=== PATIENT | female | born 1995 | race Caucasian/White ===

== ENCOUNTER 2016-04-10 12:53 | Emergency (ER) | payer SELFPAY ==
[~2016-04-10] VITALS: Ht 157.5 cm; Wt 55.0 kg
[~2016-04-10 12:53] MED LIST: ZOFR4TAB3 SL
[2016-04-10 12:59] VITALS: BP 106/77; PULSE 102; RESP 16; TEMP 97.7; O2SAT 100
--- NOTE | 2016-04-10 13:29 | PD ---
HPI Chief Complaint: Abdominal Pain Time Seen by Provider: 13:12 Travel History International Travel<30 days: No Contact w/Intl Traveler<30days: No Traveled to known affect area: No History of Present Illness HPI The patient was seen and examined in the presence of the nurse. This patient complains of right flank pain. Duration is 3 days. Severity is moderate. No injury. No vomiting or diarrhea or fever or urinary or vaginal complaints. Eating factors. PFSH Past Medical History Asthma: Yes Diminished Hearing: No Hepatitis: Yes (C) Respiratory: Yes (ASTHMA) ?: Not LMP: 3 weeks ago : 4 Para: 2 : 2 Past Surgical History Other Surgery: No Social History Alcohol Use: Yes Tobacco Use: Yes (/ PPD) Substance Use: Yes (THC) Allergies-Medications (Allergen,Severity, Reaction): Coded Allergies: No Known Allergies (Verified , 04/10/16) Reported Meds & Prescriptions Reported Meds & Active Scripts Active No Active Prescriptions or Reported Medications Review of Systems General / Constitutional: No: Fever Eyes: No: Visual changes HENT: No: Headaches Cardiovascular: No: Chest Pain or Discomfort Respiratory: No: Shortness of Breath Gastrointestinal: No: Abdominal Pain Genitourinary: Positive: Flank Pain, No: Dysuria Musculoskeletal: No: Pain Skin: No Rash Neurologic: No: Weakness Psychiatric: No: Depression Endocrine: No: Polydipsia Hematologic/Lymphatic: No: Easy Bruising Physical Exam Narrative GENERAL: Well-nourished, well-developed patient with right flank pain. SKIN: Warm and dry. HEAD: Atraumatic. Normocephalic. EYES: Pupils equal and round. No scleral icterus. No injection or drainage. ENT: No nasal bleeding or discharge. Mucous membranes pink and moist. NECK: Trachea midline. No JVD. CARDIOVASCULAR: Regular rate and rhythm. No murmur appreciated. RESPIRATORY: No accessory muscle use. Clear to auscultation. Breath sounds equal bilaterally. GASTROINTESTINAL: Abdomen soft, non-tender, nondistended. Hepatic and splenic margins not palpable. MUSCULOSKELETAL: No obvious deformities. No clubbing. No cyanosis. No edema. Right CVA area is tender NEUROLOGICAL: Awake and alert. No obvious cranial nerve deficits. Motor grossly within normal limits. Normal speech. PSYCHIATRIC: Appropriate mood and affect; insight and judgment normal. Data Data Last Documented VS Vital Signs Date Time Temp Pulse Resp B/P Pulse Ox O2 Delivery O2 Flow Rate FiO2 04/10/16 12:59 97.7 102 16 106/77 100 Orders Iv Access Insert/Monitor (04/10/16 13:23) Urinalysis - C+S If Indicated (04/10/16 13:23) Ed Urine Pregnancytest Poc (04/10/16 13:23) Complete Blood Count With Diff (04/10/16 13:23) Basic Metabolic Panel (Bmp) (04/10/16 13:23) Beta Hcg (Quant/Titer) (04/10/16 13:23) Urine Culture (04/10/16 13:31) Labs Laboratory Tests Test 04/10/16 13:31 White Blood Count 11.3 TH/MM3 Red Blood Count 4.46 MIL/MM3 Hemoglobin 13.7 GM/DL Hematocrit 40.1 % Mean Corpuscular Volume 90.1 FL Mean Corpuscular Hemoglobin 30.8 PG Mean Corpuscular Hemoglobin 34.2 % Concent Red Cell Distribution Width 12.6 % Platelet Count 170 TH/MM3 Mean Platelet Volume 8.4 FL Neutrophils (%) (Auto) 75.8 % Lymphocytes (%) (Auto) 9.8 % Monocytes (%) (Auto) 13.5 % Eosinophils (%) (Auto) 0.2 % Basophils (%) (Auto) 0.7 % Neutrophils # (Auto) 8.6 TH/MM3 Lymphocytes # (Auto) 1.1 TH/MM3 Monocytes # (Auto) 1.5 TH/MM3 Eosinophils # (Auto) 0.0 TH/MM3 Basophils # (Auto) 0.1 TH/MM3 CBC Comment DIFF FINAL Differential Comment Urine Collection Type CLEAN CATCH Urine Color YELLOW Urine Turbidity CLOUDY Urine pH 6.5 Urine Specific [place] 1.010 Urine Protein 100 mg/dL Urine Glucose (UA) NEG mg/dL Urine Ketones NEG mg/dL Urine Occult Blood SMALL Urine Nitrite NEG Urine Bilirubin NEG Urine Leukocyte Esterase LARGE Urine RBC 0-3 /hpf Urine WBC 25-49 /hpf Urine Squamous Epithelial > 8 /hpf Cells Urine Bacteria MOD /hpf Microscopic Urinalysis Comment CULTURE INDICATED Sodium Level 135 MEQ/L Potassium Level 3.6 MEQ/L Chloride Level 100 MEQ/L Carbon Dioxide Level 25.6 MEQ/L Anion Gap 9 MEQ/L Blood Urea Nitrogen 4 MG/DL Creatinine 0.57 MG/DL Estimat Glomerular Filtration 131 ML/MIN Rate Random Glucose 95 MG/DL Calcium Level 8.6 MG/DL Human Chorionic Gonadotropin, [address] MIU/ML Quant MDM Medical Decision Making Medical Screen Exam Complete: Yes Emergency Medical Condition: Yes Medical Record Reviewed: Yes Differential Diagnosis Pyelonephritis, ectopic , sciatica Narrative Course I have reviewed the patient's electronic medical record. Patient was here many times in 2013 for minor complaints but visits have tapered off after that IV placed CBC is normal Metabolic profile is normal Urine is positive Beta hCG is 22,000 I did a bedside transabdominal ultrasound. I see a distinct ringlike structure in the center of the uterine cavity suggesting early fetus. 2 early for distinct heartbeat. An intra-uterine fetus rules out ectopic. She has a soft benign nontender abdomen and no abdominal or pelvic pain Urinalysis shows pyuria and will be cultured I gave her one week of Macrobid Has been using a lot of drugs lately and is counseled against this Needs to get some care Take a daily vitamin and use Tylenol as needed Diagnosis Primary Impression: Acute right flank pain Additional Impression: Qualified Code: Z33.1 - , unspecified gestational age Additional Instructions: Follow-up with [facility] for care assessment Take a vitamin daily Take antibiotics as prescribed Med/Other Pt SpecificInfo: Prescription(s) given Scripts Nitrofurantoin Monohydrate Macrocrystals (Macrobid)100 Mg [id number] Mg PO BID #14 CAP Ref 0 Prov:Obi Dent MD 04/10/16 Disposition: 01 DISCHARGE HOME Condition: Stable Obi Dent MD Apr 10, 2016 13:28
[2016-04-10 13:43] LABS: AUTOMATED NEUTROPHIL # 8.6 TH/MM3 (1.8-7.7); BASOPHIL # 0.1 TH/MM3 (0-0.2); BASOPHIL % 0.7 % (0.0-2.0); BLOOD, URINE SMALL (NEG); EOSINOPHIL % 0.2 % (0.0-4.0); GLUCOSE,URINE NEG (NEG); HEMATOCRIT 40.1 % (35.0-46.0); HEMO FLAGS DIFF FINAL; KETONE, URINE NEG (NEG); LYMPH % 9.8 % (9.0-44.0); LYMPHOCYTE # 1.1 TH/MM3 (1.0-4.8); MEAN CELL VOLUME 90.1 FL (80.0-100.0); MEAN CORPUSCULAR HEMOGLOBIN 30.8 PG (27.0-34.0); MEAN CORPUSCULAR HGB CONC 34.2 % (32.0-36.0); MONO % 13.5 % (0.0-8.0); NEUT % 75.8 % (16.0-70.0); NITRITE,URINE NEG (NEG); PH, URINE 6.5 (5.0-8.5); PLATELET COUNT 170 TH/MM3 (150-450); RED BLOOD COUNT 4.46 MIL/MM3 (4.00-5.30); RED CELL DISTRIBUTION WIDTH 12.6 % (11.6-17.2); WHITE BLOOD COUNT 11.3 TH/MM3 (4.0-11.0)
[2016-04-10 13:51] LABS: METHOD OF COLLECTION CLEAN CATCH; URINE COLOR YELLOW (YELLW/STRAW)
[2016-04-10 13:52] LABS: BACTERIA, URINE MOD /hpf; COMMENT (UR) CULTURE INDICATED; CULTURE IF INDICATED CULTURE INDICATED; POTASSIUM 3.6 MEQ/L (3.5-5.1); RBC, URINE 0-3 /hpf (0-3); SQUAMOUS EPITHELIAL CELL URINE > 8 /hpf (0-5)
[2016-04-10 13:55] LABS: BICARBONATE 25.6 MEQ/L (21.0-32.0)
[2016-04-10] MEDS ORDERED: MACR100C2 PO (15:46)
== END 2016-04-10 16:02 | disposition home or self-care (01) ==
LOC: PHED 12:53
DX: O23.40 Unspecified infection of urinary tract in pregnancy, unspecified trimester (principal); B96.20 Unspecified Escherichia coli [E. coli] as the cause of diseases classified elsewhere; B96.89 Other specified bacterial agents as the cause of diseases classified elsewhere; Z3A.00 Weeks of gestation of pregnancy not specified
CPT/HCPCS: 80048; 81001; 84702; 84703; 85025; 87077; 87086; 87186; 99284

== ENCOUNTER 2016-04-11 08:48 | Emergency (ER) | payer SELFPAY ==
[~2016-04-11] VITALS: Ht 154.9 cm; Wt 56.0 kg
[~2016-04-11 08:48] MED LIST changes: +MACR100C2 PO; -ZOFR4TAB3 SL
[2016-04-11 08:53] VITALS: BP 109/77; PULSE 101; RESP 16; TEMP 98.7; O2SAT 99
[2016-04-11] MEDS ORDERED: SODIUM CHLOR 0.9% 1000 ML INJ 1,000 ML IV ONE (09:09)
[2016-04-11] MEDS ORDERED: ONDANSETRON HCL 4 MG/2 ML VIAL IVP ONE (09:15)
[2016-04-11] MEDS ORDERED: MORPHINE SULFATE 4 MG/ML INJ IV PUSH ONE (09:15)
[2016-04-11] MEDS ORDERED: cefTRIAXone INJ 1,000 MG in SODIUM CHLORIDE 0.9% INJ 100 ML IV ONE (09:15)
--- NOTE | 2016-04-11 09:15 | PD ---
HPI Chief Complaint: Complaint Time Seen by Provider: 09:02 Travel History International Travel<30 days: No Contact w/Intl Traveler<30days: No Traveled to known affect area: No History of Present Illness HPI The patient is a 21-year-old female who presents to the emergency department for right flank pain. The patient was evaluated in the emergency department yesterday where she had a positive beta hCG greater than 20,000. The patient is Ab2, gave one child up for adoption. The patient states her last menstrual cycle was approximately 3.5 weeks ago. According to the EMR the patient had a bedside ultrasound revealed what appeared to be a ringlike structure in the uterus consistent with an IUP. The patient was diagnosed with pyelonephritis and discharged home on Macrobid. The patient states she has taken 3 doses Macrobid, but continues to have severe right sided flank pain. She does complain of mild nausea without any vomiting. The pain is located in the right flank, nonradiating, worse with inspiration and palpation over the affected area. The patient denies any vaginal discharge or bleeding. Symptoms are moderate, there are no current alleviating or exacerbating factors. PFSH Past Medical History Asthma: Yes Diminished Hearing: No Hepatitis: Yes (C) Respiratory: Yes (ASTHMA) Tetanus Vaccination: > 5 Years Influenza Vaccination: No ?: LMP: 3 WEEK AGO-TOLD SHE WAS 04/10/16 : 4 Para: 2 : 2 Past Surgical History Other Surgery: No Social History Alcohol Use: Yes Tobacco Use: Yes (1/2 PPD) Substance Use: Yes (THC) Allergies-Medications (Allergen,Severity, Reaction): Coded Allergies: No Known Allergies (Verified , 04/11/16) Reported Meds & Prescriptions Reported Meds & Active Scripts Active Macrobid (Nitrofurantoin Monoh/Nitrofur Macro) 100 Mg Cap 100 Mg PO BID Review of Systems Except as stated in HPI: all other systems reviewed are Neg General / Constitutional: No: Fever Cardiovascular: No: Chest Pain or Discomfort Respiratory: No: Shortness of Breath Gastrointestinal: Positive: Nausea, No: Vomiting, Diarrhea, Abdominal Pain Genitourinary: Positive: Flank Pain, No: Dysuria, Discharge, Vaginal Bleeding Skin: No Rash Psychiatric: Positive: Substance Abuse (history of IVDA, 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 SKIN: Warm and dry. HEAD: Atraumatic. Normocephalic. EYES: Pupils equal and round. No scleral icterus. No injection or drainage. ENT: No nasal bleeding or discharge. Mucous membranes pink and moist. NECK: Trachea midline. No JVD. CARDIOVASCULAR: Regular, tachycardic with a heart rate of 100. RESPIRATORY: No accessory muscle use. Clear to auscultation. Breath sounds equal bilaterally. GASTROINTESTINAL: Abdomen soft, negative Garcia's. Tender in the right flank. Back: Right CVA tenderness. MUSCULOSKELETAL: No obvious deformities. No clubbing. No cyanosis. No edema. NEUROLOGICAL: Awake and alert. No obvious cranial nerve deficits. Motor grossly within normal limits. Normal speech. PSYCHIATRIC: Appropriate mood and affect; insight and judgment normal. Data Data Last Documented VS Vital Signs Date Time Temp Pulse Resp B/P Pulse Ox O2 Delivery O2 Flow Rate FiO2 04/11/16 10:39 85 18 113/67 100 Room Air 04/11/16 08:53 98.7 Orders Beta Hcg (Quant/Titer) (04/11/16 09:09) Complete Blood Count With Diff (04/11/16 09:09) Comprehensive Metabolic Panel (04/11/16 09:09) Us Pelvis (Ques Pr/Ect)W Trans (04/11/16 ) Iv Access Insert/Monitor (04/11/16 09:09) Ecg Monitoring (04/11/16 09:09) Sodium Chlor 0.9% 1000 Ml Inj (Ns 1000 M (04/11/16 09:09) Ondansetron Inj (Zofran Inj) (04/11/16 09:15) Morphine Inj (Morphine Inj) (04/11/16 09:15) Ceftriaxone Inj (Rocephin Inj) (04/11/16 09:15) Labs Laboratory Tests Test 04/11/16 09:40 White Blood Count 14.9 TH/MM3 Red Blood Count 4.56 MIL/MM3 Hemoglobin 13.5 GM/DL Hematocrit 41.3 % Mean Corpuscular Volume 90.6 FL Mean Corpuscular Hemoglobin 29.7 PG Mean Corpuscular Hemoglobin 32.8 % Concent Red Cell Distribution Width 12.7 % Platelet Count 184 TH/MM3 Mean Platelet Volume 8.3 FL Neutrophils (%) (Auto) 79.6 % Lymphocytes (%) (Auto) 5.6 % Monocytes (%) (Auto) 14.2 % Eosinophils (%) (Auto) 0.2 % Basophils (%) (Auto) 0.4 % Neutrophils # (Auto) 11.9 TH/MM3 Lymphocytes # (Auto) 0.8 TH/MM3 Monocytes # (Auto) 2.1 TH/MM3 Eosinophils # (Auto) 0.0 TH/MM3 Basophils # (Auto) 0.1 TH/MM3 CBC Comment DIFF FINAL Differential Comment Sodium Level 133 MEQ/L Potassium Level 3.6 MEQ/L Chloride Level 98 MEQ/L Carbon Dioxide Level 26.3 MEQ/L Anion Gap 9 MEQ/L Blood Urea Nitrogen 4 MG/DL Creatinine 0.50 MG/DL Estimat Glomerular Filtration 153 ML/MIN Rate Random Glucose 114 MG/DL Calcium Level 8.5 MG/DL Total Bilirubin 0.5 MG/DL Aspartate Amino Transf 15 U/L (AST/SGOT) Alanine Aminotransferase 24 U/L (ALT/SGPT) Alkaline Phosphatase 67 U/L Total Protein 7.0 GM/DL Albumin 2.8 GM/DL Human Chorionic Gonadotropin, 01909 MIU/ML Quant MDM Medical Decision Making Medical Screen Exam Complete: Yes Emergency Medical Condition: Yes Medical Record Reviewed: Yes Interpretation(s) Ultrasound pelvis reveals intrauterine gestation is positive with heart tones and 125 bpm. Gestational sac corresponds to 6 weeks one day, crown-rump length corresponds with a 6 week 4 day gestation. 12 x 3 mm questionable subchorionic hemorrhage. Laboratory Tests Test 04/11/16 09:40 White Blood Count 14.9 TH/MM3 Red Blood Count 4.56 MIL/MM3 Hemoglobin 13.5 GM/DL Hematocrit 41.3 % Mean Corpuscular Volume 90.6 FL Mean Corpuscular Hemoglobin 29.7 PG Mean Corpuscular Hemoglobin 32.8 % Concent Red Cell Distribution Width 12.7 % Platelet Count 184 TH/MM3 Mean Platelet Volume 8.3 FL Neutrophils (%) (Auto) 79.6 % Lymphocytes (%) (Auto) 5.6 % Monocytes (%) (Auto) 14.2 % Eosinophils (%) (Auto) 0.2 % Basophils (%) (Auto) 0.4 % Neutrophils # (Auto) 11.9 TH/MM3 Lymphocytes # (Auto) 0.8 TH/MM3 Monocytes # (Auto) 2.1 TH/MM3 Eosinophils # (Auto) 0.0 TH/MM3 Basophils # (Auto) 0.1 TH/MM3 CBC Comment DIFF FINAL Differential Comment Sodium Level 133 MEQ/L Potassium Level 3.6 MEQ/L Chloride Level 98 MEQ/L Carbon Dioxide Level 26.3 MEQ/L Anion Gap 9 MEQ/L Blood Urea Nitrogen 4 MG/DL Creatinine 0.50 MG/DL Estimat Glomerular Filtration 153 ML/MIN Rate Random Glucose 114 MG/DL Calcium Level 8.5 MG/DL Total Bilirubin 0.5 MG/DL Aspartate Amino Transf 15 U/L (AST/SGOT) Alanine Aminotransferase 24 U/L (ALT/SGPT) Alkaline Phosphatase 67 U/L Total Protein 7.0 GM/DL Albumin 2.8 GM/DL Human Chorionic Gonadotropin, 21582 MIU/ML Quant Differential Diagnosis Differential diagnosis includes nephrolithiasis, pyelonephritis, hydronephrosis , cholecystitis, ectopic , atypical appendicitis, PID, cervicitis. Narrative Course IV was established, labs are drawn and sent, and the patient was placed on cardiac telemetry monitoring and continuous pulse oximetry monitoring. I reviewed the EMR and Dr. Aj's note regarding the bed side ultrasound which revealed a ringlike structure consistent most probably with an IUP. The patient 's UA did have WBCs and leukocyte esterase, the patient was placed on Macrobid. No imaging was performed secondary to . Patient returns with right flank pain and right CVA tenderness consistent with pyelonephritis. Cultures were reviewed, are currently pending. Therefore, the patient was administered Rocephin 1 g intravenously. Formal ultrasound was ordered to rule out ectopic . I had a discussion with the patient regarding pain medications, morphine and beta category C, patient would prefer to have something for pain. Therefore, the patient was administered morphine, Zofran, and IV fluids. The patient's white count is mildly elevated at 14, BUN/creatinine are normal. Ultrasound reveals an IUP with positive heart tones, no evidence of ectopic . The patient is advised to return in 24 hours, after 4 PM tomorrow, to be evaluated by myself once again for evaluation of culture results and repeat white count. Patient will also be redosed with Rocephin 1 g intravenously at that time. Patient agrees and understands. The patient is advised to take a vitamin daily. Diagnosis Primary Impression: Acute right flank pain Additional Impression: Qualified Code: Z3A.01 - Less than 8 weeks gestation of Referrals: [facility] Patient Instructions: General Instructions Additional Instructions: Take a vitamin daily. Continue to biotics is directed. Return to [facility] tomorrow after 4 PM to be evaluated by myself for evaluation of culture results. Follow-up with [facility]. Med/Other Pt SpecificInfo: No Change to Meds Disposition: 01 DISCHARGE HOME Condition: Stable Sid Fry MD Apr 11, 2016 09:15
[2016-04-11 09:54] LABS: AUTOMATED NEUTROPHIL # 11.9 TH/MM3 (1.8-7.7); BASOPHIL # 0.1 TH/MM3 (0-0.2); BASOPHIL % 0.4 % (0.0-2.0); EOSINOPHIL % 0.2 % (0.0-4.0); HEMATOCRIT 41.3 % (35.0-46.0); LYMPH % 5.6 % (9.0-44.0); LYMPHOCYTE # 0.8 TH/MM3 (1.0-4.8); MEAN CELL VOLUME 90.6 FL (80.0-100.0); MEAN CORPUSCULAR HEMOGLOBIN 29.7 PG (27.0-34.0); MEAN CORPUSCULAR HGB CONC 32.8 % (32.0-36.0); MONO % 14.2 % (0.0-8.0); NEUT % 79.6 % (16.0-70.0); PLATELET COUNT 184 TH/MM3 (150-450); RED BLOOD COUNT 4.56 MIL/MM3 (4.00-5.30); RED CELL DISTRIBUTION WIDTH 12.7 % (11.6-17.2); WHITE BLOOD COUNT 14.9 TH/MM3 (4.0-11.0)
[2016-04-11 09:56] LABS: HEMO FLAGS DIFF FINAL
[2016-04-11 10:00] LABS: CHLORIDE 98 MEQ/L (98-107); POTASSIUM 3.6 MEQ/L (3.5-5.1); SODIUM (NA) 133 MEQ/L (136-145)
[2016-04-11 10:04] LABS: ANION GAP 9 MEQ/L (5-15); BICARBONATE 26.3 MEQ/L (21.0-32.0); BLOOD UREA NITROGEN 4 MG/DL (7-18)
[2016-04-11 10:06] LABS: ALT (GPT) 24 U/L (10-53)
[2016-04-11 10:07] LABS: AST (GOT) 15 U/L (15-37); GLOMERULAR FILTRATION RATE 153 ML/MIN (>89)
[2016-04-11 10:08] LABS: TOTAL BILIRUBIN ADULT 0.5 MG/DL (0.2-1.0)
[2016-04-11 10:09] LABS: ALKALINE PHOSPHATASE 67 U/L (45-117)
[2016-04-11 10:24] LABS: BETA HCG QUANT 23184 MIU/ML (0-5)
[2016-04-11 10:39] VITALS: BP 113/67; PULSE 85; RESP 18; O2SAT 100
--- NOTE | 2016-04-11 11:18 | RADHPO ---
EXAM DATE/TIME: 04/11/2016 10:41 [facility] COMPARISON: No previous studies available for comparison. INDICATIONS : Right flank pain. LAB(S): Beta-hC 04/10/16, [id number] 04/11/16 MEDICAL HISTORY : . SURGICAL HISTORY : None. ENCOUNTER: Initial ACUITY: 4-6 days PAIN SCORE: 2/10 LOCATION: Bilateral pelvis MEASUREMENTS: UTERUS: 10.1 x 6.3 x 5.3 cm ENDOMETRIAL STRIPE: 11 mm RIGHT OVARY: 3.9 x 4.2 x 2.0 cm LEFT OVARY: 3.3 x 2.1 x 2.2 cm FINDINGS: UTERUS: The myometrium has homogeneous echotexture without mass.Within the endometrial cavity there is an ova l collection measuring 2.1 x 0.8 x 2.5 cm consistent with a gestational sac. Corresponds with a six-w [place] one-day gestation. There is also a small yolk sac and a crown-rump length measuring 7 mm consiste nt with a six-week four-day gestation. Around the echogenic rim of the gestational sac there is a 12 x 3 mm hypoechoic collection could be a small subchorionic hemorrhage. Positive heart tones are 125 beats per minute RIGHT OVARY: Ovary contains no mass or significant cystic lesion. LEFT OVARY: Ovary contains no mass or significant cystic lesion. MISCELLANEOUS: No free fluid. CONCLUSION: Intrauterine gestation is positive with heart tones at 125 beats per minute. Gestational sac co rresponds to 6 weeks one day, crown-rump length corresponds with a six-week four-day gestation. 12 x 3 mm questionable subchorionic hemorrhage Ancelmo Bolivar MD on April 11, 2016 at 11:13 Board Certified Radiologist. This report was verified electronically.
[2016-04-11 11:47] VITALS: BP 98/65; PULSE 75; RESP 16; O2SAT 100
== END 2016-04-11 11:53 | disposition home or self-care (01) ==
LOC: PHED 08:48
DX: O26.891 Other specified pregnancy related conditions, first trimester (principal); R10.84 Generalized abdominal pain; Z3A.01 Less than 8 weeks gestation of pregnancy
CPT/HCPCS: 76700; 76817; 80053; 84702; 85025; 96361; 96365; 96375; 99284; J0696; J2270; J2405; J7030

== ENCOUNTER 2016-11-16 18:21 | Emergency (ER) | payer OTHER ==
[~2016-11-16 18:21] MED LIST changes: +ALBU6.7H INH; -MACR100C2 PO; +MEDR4PAK PO; +PREN1CAP30 PO; +ZITH1POW PO
[2016-11-16] MEDS ORDERED: diphenhydrAMINE HCL 50 MG/ML VIAL IM ONE (20:15)
--- NOTE | 2016-11-16 20:15 | PD ---
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 Is consistent with the PUPPS of . heart tones are reactive no contractions seen Weeks Gestation: 39 Para: 3 : 5 Miscarriage: 1 History Obstetric History Obstetric History 3 vaginal deliveries 1 early loss Social History Alcohol Use: No Tobacco Use: No Substance Abuse: No Allergies-Medications (Allergen,Severity, Reaction): Coded Allergies: No Known Allergies (Verified , 11/16/16) Home Meds Active Scripts Methylprednisolone Dosepak (Medrol Dosepak) 4 Mg Dspk, 4 MG PO DIRECTED, #1 DSPK 0 Refills Per Pharmacist direction Prov:Steph Viera 11/16/16 Albuterol 6.7 GM Inh (Proventil Hfa 6.7 GM Inh) 90 Mcg/Act Aer, 2 PUFF INH Q4HR Y for SHORTNESS OF BREATH, #1 INHALER 6 Refills Prov:Steph Viera 10/26/16 Without A W/Fe Fum-Fe (Provida Dha 16-16-1.25-110 mg) 1 Cap Cap, 1 TAB PO DAILY, #30 BOTTLE 11 Refills Prov:Steph Viera 10/26/16 Discontinued Scripts Azithromycin Powder Packet (Zithromax Powder Packet) 1 Gm Powderpack, 1 GM PO ONCE for Infection, #1 PKT 0 Refills Mix with water according to packet instructions before use. Prov:Steph Viera 11/08/16 Review of Systems General / Constitutional: No: Fever, Weight Gain, Chills, Other Eyes: No: Diploplia, Blurred Vision, Visual changes, Pain, Photophobia HENT: No: Headaches, Vertigo, Lightheadedness Cardiovascular: No: Irregular Rhythm, Chest Pain or Discomfort, Palpitations, Tachycardia, Syncope, Varicosities, Edema, Cyanosis Respiratory: No: Cough, Short of Breath, Other Gastrointestinal: No: Nausea, Vomiting, Diarrhea Genitourinary: No: Decreased Urinary Output, Oliguria Musculoskeletal: No: Limited ROM, Weakness, Cramping, Edema, Pain Skin: Rash, No Itching, No Dryness, No Lumps, No Change in Pigmentation, No Change in Nails, No Alopecia, Lesions Neurologic: No: Weakness, Dizziness, Syncope, Focal Abnormalities, Coordination Problem, Headache, Slurred Speech, Seizures Psychiatric: No: Depression, Suicidal Ideations, Homicidal Ideation Endocrine: No: Heat Intolerance, Cold Intolerance, Polydipsia, Polyuria, Other Physical Exam Narrative GENERAL: Well-nourished, well-developed patient. SKIN: Warm and dry. Patient with multiple small lesions on her arms and legs and some on the thorax some of these are just a result of scratching all these areas. HEAD: Normocephalic and atraumatic. EYES: No scleral icterus. No injection or drainage. ENT: No nasal drainage noted. Mucous membranes pink. Airway patent. NECK: Supple, trachea midline. No JVD. CARDIOVASCULAR: Regular rate and rhythm without murmurs, gallops, or rubs. RESPIRATORY: Breath sounds equal bilaterally. No accessory muscle use. BREASTS: Bilateral exam showed no masses , no retractions, no nipple discharge. ABDOMEN/GI: Abdomen soft, non-tender, bowel sounds present, no rebound, no guarding Gravid to [-39] weeks size Fundal Height: [-39] GENITOURINARY: External Genitalia: intact and normal in appearance BUS glands: [-] Cervix: [-] Dilatation: [-4] Effacement: [-60] Station: [-2] Presentation: [vtx-] Membranes: [intact BBOW]membranes stripped Uterine Contractions: [rare-] FHT's: Category: [1-] Baseline: [-133] Reactive: [yes-] Variability: [mod-] Decels: [-0] EXTREMITIES: No cyanosis or edema. BACK: Nontender without obvious deformity. No CVA tenderness. NEUROLOGICAL: Awake and alert. Motor and sensory grossly within normal limits. Five out of 5 muscle strength in all muscle groups. Normal speech. Data Data Orders Orders Diphenhydramine Inj (Benadryl Inj) (11/16/16 20:15) MDM Interpretation(s) 21-year-old white female 39 weeks here for spotting after being checked in the office. She is 4 cm 60% and -2 with bulging bags is no surprises she's had some spotting being checked. And I checked tonight and stripped her membranes she was to be induced at this time because of her itching rash has diffuse bloody show my gloves that she knows that she can see some blood when she wipes. Heart tones reactive she is not ozzy regularly Plan Review the patient IM shot of Benadryl and then a prescription for oral Atarax for itching at home she is to use calamine lotion and hot baths as well. Later cervix is at this time it would not surprise me if she went into labor with the next 24-48 hours and that may solve her rash issue Diagnosis Diagnosis: Primary Impression: Spotting affecting in third trimester Additional Impression: PUPP (pruritic urticarial papules and plaques of ) Disposition: 01 DISCHARGE HOME Condition: Stable Scripts Hydroxyzine Pamoate (Hydroxyzine Pamoate) 50 Mg Cap 50 MG PO QID Y for ITCHING for 7 Days, #30 CAP 0 Refills Prov: Doyle Ray II, MD 11/16/16 Doyle Ray II, MD Nov 16, 2016 20:15
[2016-11-16] MEDS ORDERED: HYDR50CA PO (20:24)
== END 2016-11-16 20:42 | disposition home or self-care (01) ==
LOC: HOBED 18:21
DX: O26.853 Spotting complicating pregnancy, third trimester (principal); O26.86 Pruritic urticarial papules and plaques of pregnancy (PUPPP)
CPT/HCPCS: 59025; 96372; J1200

== ENCOUNTER 2016-11-17 16:25 | Inpatient (IN) | payer OTHER ==
[~2016-11-17] VITALS: Ht 149.9 cm; Wt 66.7 kg
[2016-11-17] VITALS (23 sets, daily range): BP systolic 98–138; BP diastolic 37–86; PULSE 73–120; RESP 18; TEMP 97.8
[~2016-11-17 16:25] MED LIST changes: +HYDR50CA PO; -ZITH1POW PO
[2016-11-17] MEDS ORDERED: LACTATED RINGER'S 1000 ML INJ 1,000 ML IV SCH (17:33)
[2016-11-17] MEDS ORDERED: LACTATED RINGER'S 1000 ML INJ 1,000 ML IV PRN (17:33)
--- NOTE | 2016-11-17 17:37 | PD ---
HPI Chief Complaint 39 weeks and 1 day Intense itching with rash Date Seen: Nov 17, 2016 Time Seen: 16:00 Travel History International Travel<30 Days: No Contact w/Intl Traveler<30Days: No Known Affected Area: No History of Present Illness HPI Pt is a 21 yo who presents with worsening pruritis. Pt has been diagnosed with PUPPS. She was seen here last night with c/o vaginal spotting and noted to be 4cm dilated. She was ent home with Vistaril PO , but she states itching is intractable. No vaginal bleeding, no vaginal leaking. Actine movements. 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) Allergies-Medications (Allergen,Severity, Reaction): Coded Allergies: No Known Allergies (Verified , 11/17/16) Home Meds Active Scripts Hydroxyzine Pamoate (Hydroxyzine Pamoate) 50 Mg Cap, 50 MG PO QID Y for ITCHING for 7 Days, #30 CAP 0 Refills Prov:Doyle Ray II, MD 11/16/16 Methylprednisolone Dosepak (Medrol Dosepak) 4 Mg Dspk, 4 MG PO DIRECTED, #1 DSPK 0 Refills Per Pharmacist direction Prov:Steph Viera 11/16/16 Albuterol 6.7 GM Inh (Proventil Hfa 6.7 GM Inh) 90 Mcg/Act Aer, 2 PUFF INH Q4HR Y for SHORTNESS OF BREATH, #1 INHALER 6 Refills Prov:Steph Viera 10/26/16 Without A W/Fe Fum-Fe (Provida Dha 16-16-1.25-110 mg) 1 Cap Cap, 1 TAB PO DAILY, #30 BOTTLE 11 Refills Prov:Steph Viera 10/26/16 Discontinued Scripts Azithromycin Powder Packet (Zithromax Powder Packet) 1 Gm Powderpack, 1 GM PO ONCE for Infection, #1 PKT 0 Refills Mix with water according to packet instructions before use. Prov:Steph Viera 9/27/17 Review of Systems Except as stated in HPI: all other systems reviewed are Neg Physical Exam Narrative GENERAL: Well-nourished, well-developed patient. SKIN: Warm and dry. HEAD: Normocephalic and atraumatic. EYES: No scleral icterus. No injection or drainage. ENT: No nasal drainage noted. Mucous membranes pink. Airway patent. NECK: Supple, trachea midline. No JVD. CARDIOVASCULAR: Regular rate and rhythm without murmurs, gallops, or rubs. RESPIRATORY: Breath sounds equal bilaterally. No accessory muscle use. BREASTS: Bilateral exam showed no masses , no retractions, no nipple discharge. ABDOMEN/GI: Abdomen soft, non-tender, bowel sounds present, no rebound, no guarding Gravid to [-] weeks size Fundal Height: [-] GENITOURINARY: External Genitalia: intact and normal in appearance BUS glands: [-] Cervix: [soft] Dilatation: [4cm] Effacement: [70%] Station: [-2] Presentation: [-] Membranes: [intact] Uterine Contractions: [irregular-] FHT's: Category: [1-] Baseline: [130s] Reactive: [-] Variability: [-] Decels: [none] EXTREMITIES: No cyanosis or edema. BACK: Nontender without obvious deformity. No CVA tenderness. NEUROLOGICAL: Awake and alert. Motor and sensory grossly within normal limits. Five out of 5 muscle strength in all muscle groups. Normal speech. Data Data Vital Signs Reviewed: Yes Orders Orders Ob (2e) Additional Admit Info (11/17/16 17:12) Admit To Inpatient (11/17/16 ) Code Status (11/17/16 17:33) Vital Signs (Adult) .Per protocol (11/17/16 17:33) Activity Oob Ad Annabelle (11/17/16 17:33) Heart (11/17/16 17:33) Amnioinfusion (11/17/16 17:33) Urinary Catheter Management .ONCE (11/17/16 17:33) Diet Liquid (11/17/16 Dinner) Lactated Ringer's 1000 Ml Inj (Lr 1000 M (11/17/16 17:33) Lactated Ringer's 1000 Ml Inj (Lr 1000 M (11/17/16 17:33) Sodium Chlorid 0.9% 500 Ml Inj (Ns 500 M (11/17/16 17:45) Sodium Chlor 0.9% 1000 Ml Inj (Ns 1000 M (11/17/16 17:53) Lidocaine 1% Inj (50 Ml) (Xylocaine 1% I (11/17/16 17:45) Citric Acid-Sodium Citrate Liq (Bicitra (11/17/16 17:45) Fentanyl Inj (Fentanyl Inj) (11/17/16 17:45) Fentanyl Inj (Fentanyl Inj) (11/17/16 17:45) Complete Blood Count With Diff (11/17/16 17:33) Hold Clot (11/17/16 17:33) Abo/Rh Blood Type (11/17/16:33) Urinalysis - C+S If Indicated (11/17/16:33) Resp Oxygen Non Rebreathe Mask (11/17/16 ) ^ Epidural / Intrathecal Infus (11/17/16 17:33) Oxytocin 30 Units-500ml Premix (Pitocin (11/17/16 17:45) Lidocaine 1% Inj (50 Ml) (Xylocaine 1% I (11/17/16 17:45) Light Mineral Oil (Muri-Lube Oil) (11/17/16 17:45) Inpatient Certification (11/17/16 ) Specimen To Be Collected PRN (11/17/16 17:33) Group B Strep: Negative MDM Plan 39 weeks and 1 day PUPPS $cm cervical dilatation Admit for IOL Diagnosis Diagnosis: Primary Impression: 39 weeks gestation of Additional Impression: PUPP (pruritic urticarial papules and plaques of ) Vin Braun MD Nov 17, 2016 17:37
[2016-11-17] MEDS ORDERED: LIDOCAINE HCL 1% 50 ML VIAL INFIL PRN (17:45)
[2016-11-17] MEDS ORDERED: CITRIC ACID-SODIUM CITRATE LIQ 30 ML UDC PO SCH (17:45)
[2016-11-17] MEDS ORDERED: OXYTOCIN 30 UNITS-500ML PREMIX 500 ML IV ONE (17:45)
[2016-11-17] MEDS ORDERED: SODIUM CHLORID 0.9% 500 ML INJ 500 ML IV PRN (17:45)
[2016-11-17] MEDS ORDERED: LIDOCAINE HCL 1% 50 ML VIAL I-DERMAL PRN (17:45)
[2016-11-17] MEDS ORDERED: MINERAL OIL 10 ML VIAL TOPICAL PRN (17:45)
[2016-11-17] MEDS ORDERED: SODIUM CHLOR 0.9% 1000 ML INJ 1,000 ML IV PRN (17:53)
[2016-11-17 18:02] LABS: BLOOD, URINE MOD (NEG); COMMENT (UR) CULT NOT INDICATED; CULTURE IF INDICATED CULT NOT INDICATED; GLUCOSE,URINE NEG (NEG); GRANULAR CAST, URINE 4 /lpf; HYALINE CAST, URINE 1 /lpf (RARE); KETONE, URINE NEG (NEG); MUCUS URINE FEW /lpf (OCC); NITRITE,URINE NEG (NEG); SQUAMOUS EPITHELIAL CELL URINE 7 /hpf (0-5); URINE COLOR YELLOW (YELLW/STRAW)
[2016-11-17 18:10] LABS: AUTOMATED NEUTROPHIL # 9.8 TH/MM3 (1.8-7.7); BASOPHIL % 0.2 % (0.0-2.0); EOSINOPHIL # 0.1 TH/MM3 (0-0.4); EOSINOPHIL % 0.5 % (0.0-4.0); HEMATOCRIT 38.1 % (35.0-46.0); HEMO FLAGS DIFF FINAL; LYMPH % 15.2 % (9.0-44.0); MEAN CELL VOLUME 93.6 FL (80.0-100.0); MEAN CORPUSCULAR HGB CONC 34.2 % (32.0-36.0); MONO % 7.5 % (0.0-8.0); NEUT % 76.6 % (16.0-70.0); PLATELET COUNT 202 TH/MM3 (150-450); RED BLOOD COUNT 4.07 MIL/MM3 (4.00-5.30); RED CELL DISTRIBUTION WIDTH 15.2 % (11.6-17.2); WHITE BLOOD COUNT 12.8 TH/MM3 (4.0-11.0)
--- NOTE | 2016-11-17 18:16 | HHI.HP ---
HPI Chief Complaint 39 weeks and 1 day IUP Intense itching with rash several weeks Date Seen: Nov 17, 2016 Time Seen: 17:00 Travel History International Travel<30 Days: No Contact w/Intl Traveler<30Days: No Known Affected Area: No History of Present Illness HPI Pt is a 21 yo who presents at 39 weeks and 1 day gestation. care with [facility] EDC is 11/23/2016 Pt reports progressively worsening itching and rash over abdomen and upper extremities. Pt has been diagnosed with PUPPS. Pt was seen in OB ED last night with c/o vaginal spotting and also of the unbearable itching. She has been examined in the office earlier in the day. Pt was sent home with Vistaril but she states she is getting no relief from same. Her cervical exam last night was 4cm. Pt states itching is unbearable. She has h/p Hep C diagnosed at age 14. Pt states she did not receive any treatment, but recently had 'liver tests' that were normal. She also has asthma. Weeks Gestation: 29 Para: 3 : 5 History Past Medical History Narrative Medical Asthma, Hep C Obstetric History Obstetric History 3 prior term vaginal deliveries Past Surgical History Surgical History: No Previous Surgery Family History Family History: Negative Social History Alcohol Use: No Substance Abuse: Yes (Pt admits to heroin use, snorts. last use 2 weeks ago per patient.) Allergies-Medications (Allergen,Severity, Reaction): Coded Allergies: No Known Allergies (Verified , 11/17/16) Home Meds Active Scripts Hydroxyzine Pamoate (Hydroxyzine Pamoate) 50 Mg Cap, 50 MG PO QID Y for ITCHING for 7 Days, #30 CAP 0 Refills Prov:Doyle Ray II, MD 11/16/16 Methylprednisolone Dosepak (Medrol Dosepak) 4 Mg Dspk, 4 MG PO DIRECTED, #1 DSPK 0 Refills Per Pharmacist direction Prov:Steph Viera 11/16/16 Albuterol 6.7 GM Inh (Proventil Hfa 6.7 GM Inh) 90 Mcg/Act Aer, 2 PUFF INH Q4HR Y for SHORTNESS OF BREATH, #1 INHALER 6 Refills Prov:Steph Viera 10/26/16 Without A W/Fe Fum-Fe (Provida Dha 16-16-1.25-110 mg) 1 Cap Cap, 1 TAB PO DAILY, #30 BOTTLE 11 Refills Prov:Steph Viera 10/26/16 Discontinued Scripts Azithromycin Powder Packet (Zithromax Powder Packet) 1 Gm Powderpack, 1 GM PO ONCE for Infection, #1 PKT 0 Refills Mix with water according to packet instructions before use. Prov:Steph Viera 11/08/16 Review of Systems Except as stated in HPI: all other systems reviewed are Neg Physical Exam Narrative GENERAL: Well-nourished, well-developed patient. SKIN: Warm and dry. HEAD: Normocephalic and atraumatic. EYES: No scleral icterus. No injection or drainage. ENT: No nasal drainage noted. Mucous membranes pink. Airway patent. NECK: Supple, trachea midline. No JVD. CARDIOVASCULAR: Regular rate and rhythm without murmurs, gallops, or rubs. RESPIRATORY: Breath sounds equal bilaterally. No accessory muscle use. BREASTS: Bilateral exam showed no masses , no retractions, no nipple discharge. ABDOMEN/GI: Abdomen soft, non-tender, bowel sounds present, no rebound, no guarding Gravid to [39] weeks size Fundal Height: [39] GENITOURINARY: External Genitalia: intact and normal in appearance BUS glands: [-] Cervix: [soft] Dilatation: [4cm] Effacement: [70%] Station: [-3] Presentation: [vertex] Membranes: [intact] Uterine Contractions: [irregular] FHT's: Category: [1] Baseline: [120s] Reactive: [-] Variability: [-] Decels: [-] EXTREMITIES: No cyanosis or edema. BACK: Nontender without obvious deformity. No CVA tenderness. NEUROLOGICAL: Awake and alert. Motor and sensory grossly within normal limits. Five out of 5 muscle strength in all muscle groups. Normal speech. Caprini VTE Risk Assessment Caprini VTE Risk Assessment: No/Low Risk (score <= 1) Caprini Risk Assessment Model Point Value = 1 Point Value = 2 Point Value = 3 Point Value = 5 Age 41-60 Minor surgery BMI > 25 kg/m2 Swollen legs Varicose veins or History of unexplained or recurrent spontaneous Oral contraceptives or hormone replacement Sepsis (< 1 month) Serious lung disease, including pneumonia (< 1 month) Abnormal pulmonary function Acute myocardial infarction Congestive heart failure (< 1 month) History of inflammatory bowel disease Medical patient at bed rest Age 61-74 Arthroscopic surgery Major open surgery (> 45 min) Laparoscopic surgery (> 45 min) Malignancy Confined to bed (> 72 hours) Immobilizing plaster cast Central venous access Age >= 75 History of VTE Family history of VTE Factor V Leiden Prothrombin [id number] Lupus anticoagulant Anticardiolipin antibodies Elevated serum homocysteine Heparin-induced thrombocytopenia Other congenital or acquired thrombophilia Stroke (< 1 month) Elective arthroplasty Hip, pelvis, or leg fracture Acute spinal cord injury (< 1 month) Prophylaxis Regimen Total Risk Factor Score Risk Level Prophylaxis Regimen 0-1 Low Early ambulation 2 Moderate Order ONE of the following: *Sequential Compression Device (SCD) *Heparin 5000 units SQ BID 3-4 Higher Order ONE of the following medications: *Heparin 5000 units SQ TID *Enoxaparin/Lovenox 40 mg SQ daily (WT < 150 kg, CrCl > 30 mL/min) *Enoxaparin/Lovenox 30 mg SQ daily (WT < 150 kg, CrCl > 10-29 mL/min) *Enoxaparin/Lovenox 30 mg SQ BID (WT < 150 kg, CrCl > 30 mL/min) AND/OR *Sequential Compression Device (SCD) 5 or more Highest Order ONE of the following medications: *Heparin 5000 units SQ TID (Preferred with Epidurals) *Enoxaparin/Lovenox 40 mg SQ daily (WT < 150 kg, CrCl > 30 mL/min) *Enoxaparin/Lovenox 30 mg SQ daily (WT < 150 kg, CrCl > 10-29 mL/min) *Enoxaparin/Lovenox 30 mg SQ BID (WT < 150 kg, CrCl > 30 mL/min) AND *Sequential Compression Device (SCD) Data Data Vital Signs Reviewed: Yes Orders Orders Ob (2e) Additional Admit Info (11/17/16 17:12) Admit To Inpatient (11/17/16 ) Code Status (11/17/16 17:33) Vital Signs (Adult) .Per protocol (11/17/16 17:33) Activity Oob Ad Annabelle (11/17/16 17:33) Heart (11/17/16 17:33) Amnioinfusion (11/17/16 17:33) Urinary Catheter Management .ONCE (11/17/16 17:33) Diet Liquid (11/17/16 Dinner) Lactated Ringer's 1000 Ml Inj (Lr 1000 M (11/17/16 17:33) Lactated Ringer's 1000 Ml Inj (Lr 1000 M (11/17/16 17:33) Sodium Chlorid 0.9% 500 Ml Inj (Ns 500 M (11/17/16 17:45) Sodium Chlor 0.9% 1000 Ml Inj (Ns 1000 M (11/17/16 17:53) Lidocaine 1% Inj (50 Ml) (Xylocaine 1% I (11/17/16 17:45) Citric Acid-Sodium Citrate Liq (Bicitra (11/17/16 17:45) Fentanyl Inj (Fentanyl Inj) (11/17/16 17:45) Fentanyl Inj (Fentanyl Inj) (11/17/16 17:45) Complete Blood Count With Diff (11/17/16:33) Hold Clot (11/17/16:33) Abo/Rh Blood Type (11/17/16 17:33) Urinalysis - C+S If Indicated (11/17/16 17:33) Resp Oxygen Non Rebreathe Mask (11/17/16 ) ^ Epidural / Intrathecal Infus (11/17/16 17:33) Oxytocin 30 Units-500ml Premix (Pitocin (11/17/16 17:45) Lidocaine 1% Inj (50 Ml) (Xylocaine 1% I (11/17/16 17:45) Light Mineral Oil (Muri-Lube Oil) (11/17/16 17:45) Inpatient Certification (11/17/16 ) Specimen To Be Collected PRN (11/17/16 17:33) Group B Strep: Negative Assessment/Plan Problem List: (1) PUPP (pruritic urticarial papules and plaques of ) ICD Codes: O26.86 - Pruritic urticarial papules and plaques of (PUPPP ) (2) 39 weeks gestation of ICD Codes: Z3A.39 - 39 weeks gestation of Assessment and Plan 39 weeks and 1 day. Intractable itching with rash. diagnosed with PUPPS.plan admit and induce labor Vin Braun MD Nov 17, 2016 18:16
--- NOTE | 2016-11-17 18:20 | PD ---
HPI Chief Complaint 39 weeks and 1 day . Itching Date Seen: Nov 17, 2016 Travel History International Travel<30 Days: No Contact w/Intl Traveler<30Days: No Known Affected Area: No Allergies-Medications (Allergen,Severity, Reaction): Coded Allergies: No Known Allergies (Verified , 11/17/16) Home Meds Active Scripts Hydroxyzine Pamoate (Hydroxyzine Pamoate) 50 Mg Cap, 50 MG PO QID Y for ITCHING for 7 Days, #30 CAP 0 Refills Prov:Doyle Ray II, MD 11/16/16 Methylprednisolone Dosepak (Medrol Dosepak) 4 Mg Dspk, 4 MG PO DIRECTED, #1 DSPK 0 Refills Per Pharmacist direction Prov:Steph Viera 11/16/16 Albuterol 6.7 GM Inh (Proventil Hfa 6.7 GM Inh) 90 Mcg/Act Aer, 2 PUFF INH Q4HR Y for SHORTNESS OF BREATH, #1 INHALER 6 Refills Prov:Steph Viera 10/26/16 Without A W/Fe Fum-Fe (Provida Dha 16-16-1.25-110 mg) 1 Cap Cap, 1 TAB PO DAILY, #30 BOTTLE 11 Refills Prov:Steph Viera 10/26/16 Discontinued Scripts Azithromycin Powder Packet (Zithromax Powder Packet) 1 Gm Powderpack, 1 GM PO ONCE for Infection, #1 PKT 0 Refills Mix with water according to packet instructions before use. Prov:Steph Viera 11/08/16 Physical Exam Narrative GENERAL: Well-nourished, well-developed patient. SKIN: Warm and dry. HEAD: Normocephalic and atraumatic. EYES: No scleral icterus. No injection or drainage. ENT: No nasal drainage noted. Mucous membranes pink. Airway patent. NECK: Supple, trachea midline. No JVD. CARDIOVASCULAR: Regular rate and rhythm without murmurs, gallops, or rubs. RESPIRATORY: Breath sounds equal bilaterally. No accessory muscle use. BREASTS: Bilateral exam showed no masses , no retractions, no nipple discharge. ABDOMEN/GI: Abdomen soft, non-tender, bowel sounds present, no rebound, no guarding Gravid to [-] weeks size Fundal Height: [-] GENITOURINARY: External Genitalia: intact and normal in appearance BUS glands: [-] Cervix: [-] Dilatation: [-] Effacement: [-] Station: [-] Presentation: [-] Membranes: [intact or ruptured] Uterine Contractions: [-] FHT's: Category: [-] Baseline: [-] Reactive: [-] Variability: [-] Decels: [-] EXTREMITIES: No cyanosis or edema. BACK: Nontender without obvious deformity. No CVA tenderness. NEUROLOGICAL: Awake and alert. Motor and sensory grossly within normal limits. Five out of 5 muscle strength in all muscle groups. Normal speech. Vin Braun MD Nov 17, 2016 18:20
[2016-11-17] MEDS ORDERED: OXYTOCIN 30 UNITS-500ML PREMIX 500 ML IV SCH (19:00)
[2016-11-17] MEDS ORDERED: fentaNYL 2MCG-BUPIV 0.125% INJ 100 ML ONE (21:46)
[2016-11-17] MEDS ORDERED: ePHEDrine/NS 25 MG/5 ML SYR ONE (23:02)
[2016-11-18] VITALS (16 sets, daily range): BP systolic 95–124; BP diastolic 43–75; PULSE 72–125; RESP 16–18; TEMP 97.4–98; O2SAT 99
[2016-11-18] MEDS ORDERED: ZOLPIDEM TARTRATE 5 MG TAB PO PRN (01:45)
[2016-11-18] MEDS ORDERED: ONDANSETRON ODT 4 MG TAB PO PRN (01:45)
[2016-11-18] MEDS ORDERED: IBUPROFEN 600 MG TAB PO PRN (01:45)
[2016-11-18] MEDS ORDERED: BENZOCAINE 20% TOPICAL SPRAY 60 ML CAN TOPICAL PRN (01:45)
[2016-11-18] MEDS ORDERED: ACETAMINOPHEN 325 MG TAB PO PRN (01:45)
[2016-11-18] MEDS ORDERED: WITCH HAZEL 50%/GLYCERIN 12.5% 40 PAD JAR TOPICAL PRN (01:45)
[2016-11-18] MEDS ORDERED: SODIUM CHLORIDE 0.9% FLUSH 10 ML FLUSH IV FLUSH PRN (01:45)
[2016-11-18] MEDS ORDERED: oxyCODONE/ACETAMINOPHEN 5 MG/325 MG TAB PO PRN ×2 (01:45)
[2016-11-18] MEDS ORDERED: OXYTOCIN 30 UNITS-500ML PREMIX 500 ML IV SCH (01:45)
[2016-11-18] MEDS ORDERED: DOCUSATE SODIUM 50 MG/SENNA 8.6 MG TAB PO PRN (01:45)
[2016-11-18] MEDS ORDERED: ALUMINUM/MAGNESIUM/SIMETH 30 ML CUP PO PRN (01:45)
--- NOTE | 2016-11-18 01:50 | PD.OB.DELI ---
Weeks gestation: 39 Gest age assessed date: Nov 17, 2016 Gest age assessed time: 17:00 Pt started active labor?: Yes Active labor start date: Nov 17, 2016 Active labor start time: 21:00 Medical induction of labor?: Yes Medical induction start date: Nov 17, 2016 Medical induction start time: 18:30 Artificial rupture of membrane: Yes Artificial ROM date: Nov 17, 2016 Artifical ROM time: 20:50 (meconium amniotic fluid) Anesthesia: Epidural, Lidocaine local to perineum Episiotomy: None Vaginal Delivery: Spontaneous Presentation: Occiput anterior Nuchal Cord: None Delayed cord clamping (45 sec): No Infant: Female Delivery date: Nov 18, 2016 Delivery time: 01:21 One Minute : 8 Five Minute : 9 Weight: 3620g Placenta: Spontaneous delivery Laceration: Vaginal laceration (right labial), 1 deg Repair: Vicryl interrupted (right labial) Estimated blood loss: 150cc Additional Information Meconium stained amniotic fluid. Delivery by Rosalia Nation MD being put up for adoption. Vin Braun MD Nov 18, 2016 01:50
[2016-11-18] MEDS ORDERED: diphenhydrAMINE HCL 25 MG CAP PO PRN (05:15)
--- NOTE | 2016-11-18 08:19 | HHI.OB ---
Subjective Post Day: 0 Remarks day #0. AFVSS overnight. Pain minimal. Decreased lochia. Denies dysuria. Appetite good. No nausea or vomiting. Endorses flatus. No bowel movement. Ambulating well. Denies calf pain, shortness of breath, or cough. Otherwise, she is doing well this morning and has no other complaints. Objective Vitals/I&O Vital Signs Date Time Temp Pulse Resp B/P (MAP) Pulse Ox O2 Delivery O2 Flow Rate FiO2 11/18/16 03:40 97.4 93 18 124/75 (91) 99 11/18/16 02:20 98.0 18 11/18/16 02:15 106 122/67 (85) 11/18/16 02:05 18 11/18/16 02:01 110 111/75 (87) 11/18/16 01:50 18 11/18/16 01:45 115 121/62 (81) 11/18/16 01:30 111 102/47 (65) 11/18/16 01:30 97.9 18 11/18/16 01:15 115 112/58 (76) 11/18/16 01:00 119 105/68 (80) 11/18/16 00:45 119 116/52 (73) 11/18/16 00:30 102 109/58 (75) 11/18/16 00:15 99 104/56 (72) 11/18/16 00:09 110 109/59 (76) 11/18/16 00:00 125 95/43 (60) 11/17/16 23:46 113 100/67 (78) 11/17/16 23:30 118 125/59 (81) 11/17/16 23:15 97 115/68 (84) 11/17/16 23:07 115 118/56 (76) 11/17/16 23:00 97.8 11/17/16 23:00 120 98/37 (57) 11/17/16 22:58 89 111/72 (85) 11/17/16 22:30 100 124/85 (98) 11/17/16 22:20 95 120/64 (82) 11/17/16 22:15 89 137/66 (89) 11/17/16 22:15 108 11/17/16 22:10 99 132/64 (86) 11/17/16 22:10 93 11/17/16 22:05 104 11/17/16 22:05 96 127/79 (95) 11/17/16 22:00 90 132/83 (99) 11/17/16 22:00 86 11/17/16 21:56 86 138/76 (96) 11/17/16 21:33 82 124/86 (99) 11/17/16 21:00 73 119/75 (90) 11/17/16 20:45 97.8 11/17/16 20:30 88 125/66 (85) 11/17/16 20:25 80 116/77 (90) 11/17/16 19:30 18 11/17/16 19:30 97.8 11/17/16 19:26 87 109/62 (78) 11/17/16 18:30 18 11/17/16 18:00 18 11/17/16 17:30 18 Objective Remarks GENERAL: Well-nourished, well-developed patient. CARDIOVASCULAR: Regular rate and rhythm without murmurs, gallops, or rubs. RESPIRATORY: Breath sounds equal bilaterally. No accessory muscle use. ABDOMEN/GI: Abdomen soft, non-tender. Fundus: Firm, non-tender at umbilicus. GENITOURINARY: Light to moderate bleeding. EXTREMITIES: No cyanosis or edema, non-tender, without signs of DVT. Medications and IVs Current Medications Medications (Trade) Dose Ordered Sig/Antonio Route Start Time Stop Time Status Last Admin (NS Flush) 2 ml BID IV FLUSH 11/18/16 09:00 (NS Flush) 2 ml UNSCH PRN IV FLUSH 11/18/16 01:45 (Tylenol) 650 mg Q4H PRN PO 11/18/16 01:45 (Motrin) 600 mg Q6H PRN PO 11/18/16 01:45 (Percocet 5-325 Mg) 1 tab Q4H PRN PO 11/18/16 01:45 (Percocet 5-325 Mg) 2 tab Q4H PRN PO 11/18/16 01:45 (Americaine 20% Top Spr) 1 spray Q4H PRN TOPICAL 11/18/16 01:45 (Tucks Pads) 1 applic QID PRN TOPICAL 11/18/16 01:45 (Nette-Colace) 2 tab Q12H PRN PO 11/18/16 01:45 (Ambien) 5 mg HS PRN PO 11/18/16 01:45 (M-M-R Ii Inj) 0.5 ml ONCE ONCE SQ 11/18/16 16:00 11/18/16 16:01 (Boostrix Inj) 0.5 ml ONCE ONCE IM 11/18/16 16:00 11/18/16 16:01 (Mag-Al Plus Susp Liq) 15 ml Q8H PRN PO 11/18/16 01:45 (Zofran Odt) 4 mg Q6H PRN PO 11/18/16 01:45 (Benadryl) 25 mg Q4H PRN PO 11/18/16 05:15 11/18/16 05:42 Assessment/Plan Problem List: (1) PUPP (pruritic urticarial papules and plaques of ) ICD Codes: O26.86 - Pruritic urticarial papules and plaques of (PUPPP ) Assessment and Plan 21y/o who is PPD#0 s/p . -Continue routine care. -Percocet and Motrin PRN pain. -Encouraged OOB. Advised pelvic rest for 6 wks. -Will need a f/u appt. within 6 wks. -Re: ctrl, she is undecided -D/c in 1-2 more days. dw OB attending Gentry Cartwright MD, R2 Nov 18, 2016 08:19
[2016-11-18] MEDS ORDERED: SODIUM CHLORIDE 0.9% FLUSH 10 ML FLUSH IV FLUSH SCH (09:00)
--- NOTE | 2016-11-18 13:02 | HHI.DS ---
Admission Date Nov 17, 2016 at 17:20 Discharge Date: Nov 18, 2016 Admitting Diagnosis Term intrauterine ,PUPPS Diagnosis: Delivery Date: Nov 18, 2016 Vaginal Delivery: Normal : Female, Single Brief History Pt is a 21 yo who presents with worsening pruritis. Pt has been diagnosed with PUPPS. She was seen here last night with c/o vaginal spotting and noted to be 4cm dilated. She was ent home with Vistaril PO , but she states itching is intractable. No vaginal bleeding, no vaginal leaking. Actine movements. Hospital Course The patient was admitted and underwent induction of labor. She subsequently had a spontaneous vaginal delivery. Her baby was up for adoption and she was requesting early discharge. She is here for discharge on day 0. Pt Condition on Discharge: Good Discharge Disposition: Discharge Home Discharge Instructions Diet Instructions: As Tolerated, No Restrictions Activities You Can Perform: Pelvic Rest (6 weeks) Ancelmo Watson MD Nov 18, 2016 13:02
[2016-11-18] MEDS ORDERED: DIPHTH/TETANUS/ACEL PERTUSSIS (BOOSTER) 0.5 ML VIAL/PFS IM ONE (16:00)
[2016-11-18] MEDS ORDERED: MEASLES, MUMPS, RUBELLA VACCINE 0.5 ML VIAL SQ ONE (16:00)
[2016-11-23 11:24] LABS: BATH SALTS (MDPV) UR NEG (NEG); ECSTASY (MDMA) UR NEG (NEG); GABAPENTIN UR NEG (NEG); HEROIN (6-ACETYLMORPHINE) UR NEG (NEG); HYDROMORPHONE U NEG (NEG); K2 SPICE UR NEG (NEG); OBMETHADONE UR NEG (NEG); PHENCYCLIDINE URINE NEG (NEG)
== END 2016-11-18 14:12 | disposition home or self-care (01) | DRG 775 ==
LOC: HOBED 16:25 → H2EB 17:20 → H1EA 11-18 03:37
PROVIDERS: ADMIT Obstetrics & Gynecology; ATTEND Obstetrics & Gynecology
PROC: 3E0P3VZ Introduction of Hormone into Female Reproductive, Percutaneous Approach (ICD-10-PCS; 2016-11-17)
PROC: 10907ZC Drainage of Amniotic Fluid, Therapeutic from Products of Conception, Via Natural or Artificial Opening (ICD-10-PCS; 2016-11-17)
PROC: 10E0XZZ Delivery of Products of Conception, External Approach (ICD-10-PCS; principal; 2016-11-18)
PROC: 0HQ9XZZ Repair Perineum Skin, External Approach (ICD-10-PCS; 2016-11-18)
DX: O26.86 Pruritic urticarial papules and plaques of pregnancy (PUPPP) (principal); B19.20 Unspecified viral hepatitis C without hepatic coma; Z37.0 Single live birth; J45.909 Unspecified asthma, uncomplicated; O99.52 Diseases of the respiratory system complicating childbirth; Z3A.39 39 weeks gestation of pregnancy; O99.324 Drug use complicating childbirth; F11.90 Opioid use, unspecified, uncomplicated; O70.0 First degree perineal laceration during delivery; O77.0 Labor and delivery complicated by meconium in amniotic fluid
CPT/HCPCS: 59025; 80307; 81001; 85025; 86900; 86901; 96372; G0481; J1200; J2590

== ENCOUNTER 2017-03-12 13:14 | Observation (INO) | payer OTHER ==
[~2017-03-12] VITALS: Ht 160 cm; Wt 57.0 kg
[~2017-03-12 13:14] MED LIST changes: +ZITH1POW PO
[2017-03-12 13:21] VITALS: BP 144/52; PULSE 103; RESP 20; TEMP 98.4; O2SAT 95
[2017-03-12] MEDS ORDERED: ACTIVATED CHARCOAL/SORBITOL LIQUID 25 GM/120 ML BTL PO ONE (13:30)
[2017-03-12] MEDS ORDERED: SODIUM CHLOR 0.9% 1000 ML INJ 1,000 ML IV ONE ×2 (13:30→15:30)
[2017-03-12 13:52] LABS: AUTOMATED NEUTROPHIL # 1.2 TH/MM3 (1.8-7.7); BASOPHIL % 0.5 % (0.0-2.0); EOSINOPHIL # 0.1 TH/MM3 (0-0.4); HEMATOCRIT 39.3 % (35.0-46.0); HEMOGLOBIN 13.3 GM/DL (11.6-15.3); LYMPH % 43.2 % (9.0-44.0); LYMPHOCYTE # 1.2 TH/MM3 (1.0-4.8); MEAN CELL VOLUME 89.4 FL (80.0-100.0); MEAN CORPUSCULAR HEMOGLOBIN 30.3 PG (27.0-34.0); MEAN CORPUSCULAR HGB CONC 33.8 % (32.0-36.0); MEAN PLATELET VOLUME 9.2 FL (7.0-11.0); MONO % 11.1 % (0.0-8.0); MONOCYTE # 0.3 TH/MM3 (0-0.9); NEUT % 41.2 % (16.0-70.0); PLATELET COUNT 111 TH/MM3 (150-450); RED BLOOD COUNT 4.39 MIL/MM3 (4.00-5.30); RED CELL DISTRIBUTION WIDTH 13.8 % (11.6-17.2); WHITE BLOOD COUNT 2.8 TH/MM3 (4.0-11.0)
[2017-03-12 14:06] VITALS: BP 125/85; PULSE 102; RESP 20; O2SAT 100
[2017-03-12 14:12] LABS: ALBUMIN 3.2 GM/DL (3.4-5.0); AST (GOT) 21 U/L (15-37); BLOOD UREA NITROGEN 10 MG/DL (7-18); CHLORIDE 107 MEQ/L (98-107); CREATININE 0.65 MG/DL (0.50-1.00); GLOMERULAR FILTRATION RATE 112 ML/MIN (>89); GLUCOSE,RANDOM 105 MG/DL (74-106); SODIUM (NA) 140 MEQ/L (136-145)
[2017-03-12 14:15] LABS: ACETAMINOPHEN 4.7 MCG/ML (10.0-30.0); ALKALINE PHOSPHATASE 69 U/L (45-117); ALT (GPT) 39 U/L (10-53); TOTAL BILIRUBIN ADULT 0.2 MG/DL (0.2-1.0); TOTAL PROTEIN 6.9 GM/DL (6.4-8.2)
[2017-03-12 15:35] VITALS: BP 114/65; PULSE 85; RESP 18; O2SAT 100
--- NOTE | 2017-03-12 16:50 | PD ---
HPI Chief Complaint: OD/ Ingestion Time Seen by Provider: 13:23 Travel History International Travel<30 days: No Contact w/Intl Traveler<30days: No Traveled to known affect area: No History of Present Illness HPI Patient is a 22 year old female who comes in with police after she claims she took 60 400mg Seroquel. Per police, she was being arrested in a parking lot and this is when she reported she took the pills in an attempt to kill herself. She denies any co-ingestions. Police report ingestion was less than an hour ago. She denies any chest pain or abdominal pain. She denies feeling ill prior to the event. She injected herself with meth yesterday. PFSH Past Medical History Asthma: Yes Diminished Hearing: No Hepatitis: Yes (C) Respiratory: Yes (ASTHMA) Tetanus Vaccination: Unknown ?: Not LMP: 03/05/17 : 4 Para: 2 : 2 Past Surgical History Surgical History: No Previous Surgery Other Surgery: No Social History Alcohol Use: No Tobacco Use: Yes (1PPD) Substance Use: Yes (THC, METH) Allergies-Medications (Allergen,Severity, Reaction): Coded Allergies: No Known Allergies (Verified Adverse Reaction, Unknown, 03/12/17) Reported Meds & Prescriptions Reported Meds & Active Scripts Active Zithromax Powder Packet (Azithromycin) 1 Gm Powderpack 1 Gm PO ONCE Mix with water according to packet instructions before use. Hydroxyzine Pamoate 50 Mg Cap 50 Mg PO QID PRN 7 Days Medrol Dosepak (Methylprednisolone) 4 Mg Dspk 4 Mg PO DIRECTED Per Pharmacist direction Proventil Hfa 6.7 GM Inh (Albuterol Sulfate) 90 Mcg/Act Aer 2 Puff INH Q4HR PRN Provida Dha 16-16-1.25-110 mg ( Without A W/Fe Fum-Fe) 1 Cap Cap 1 Tab PO DAILY Review of Systems Except as stated in HPI: all other systems reviewed are Neg General / Constitutional: No: Fever, Chills HENT: No: Headaches, Lightheadedness Cardiovascular: No: Chest Pain or Discomfort Respiratory: No: Shortness of Breath Gastrointestinal: No: Nausea, Vomiting Genitourinary: No: Dysuria Musculoskeletal: No: Myalgias, Edema Skin: No Rash, No Change in Pigmentation Neurologic: No: Weakness, Dizziness Physical Exam Narrative GENERAL: Awake and alert, in no acute distress. SKIN: Focused skin assessment warm/dry. HEAD: Atraumatic. Normocephalic. EYES: Pupils equal and round. No scleral icterus. No injection or drainage. ENT: Mucous membranes pink and moist. NECK: Trachea midline. No JVD. CARDIOVASCULAR: Regular rate and rhythm. No murmur appreciated. RESPIRATORY: No accessory muscle use. Clear to auscultation. Breath sounds equal bilaterally. GASTROINTESTINAL: Abdomen soft, non-tender, nondistended. MUSCULOSKELETAL: No obvious deformities. No clubbing. No cyanosis. No edema. NEUROLOGICAL: Awake and alert. No obvious cranial nerve deficits. Motor grossly within normal limits. Normal speech. PSYCHIATRIC: Appropriate mood and affect; insight and judgment normal. Data Data Last Documented VS Vital Signs Date Time Temp Pulse Resp B/P (MAP) Pulse Ox O2 Delivery O2 Flow Rate FiO2 03/12/17 15:35 85 18 114/65 (81) 100 Room Air 03/12/17 13:21 98.4 Orders Orders Charcoal Active-Sorbitol Liq (Charcoal A (03/12/17 13:30) Iv Access Insert/Monitor (03/12/17 13:24) Complete Blood Count With Diff (03/12/17 13:24) Comprehensive Metabolic Panel (03/12/17 13:24) Electrocardiogram (03/12/17 ) Sodium Chlor 0.9% 1000 Ml Inj (Ns 1000 M (03/12/17 13:30) Tylenol (Acetaminophen) (03/12/17 13:24) Salicylates (Aspirin) (03/12/17 13:24) Alcohol (Ethanol) (03/12/17 13:24) Ed Urine Pregnancytest Poc (03/12/17 13:24) Drug Screen, Random Urine (03/12/17 13:24) Sodium Chlor 0.9% 1000 Ml Inj (Ns 1000 M (03/12/17 15:30) Labs Laboratory Tests Test 03/12/17 13:40 03/12/17 15:50 White Blood Count 2.8 TH/MM3 Red Blood Count 4.39 MIL/MM3 Hemoglobin 13.3 GM/DL Hematocrit 39.3 % Mean Corpuscular Volume 89.4 FL Mean Corpuscular Hemoglobin 30.3 PG Mean Corpuscular Hemoglobin Concent 33.8 % Red Cell Distribution Width 13.8 % Platelet Count 111 TH/MM3 Mean Platelet Volume 9.2 FL Neutrophils (%) (Auto) 41.2 % Lymphocytes (%) (Auto) 43.2 % Monocytes (%) (Auto) 11.1 % Eosinophils (%) (Auto) 4.0 % Basophils (%) (Auto) 0.5 % Neutrophils # (Auto) 1.2 TH/MM3 Lymphocytes # (Auto) 1.2 TH/MM3 Monocytes # (Auto) 0.3 TH/MM3 Eosinophils # (Auto) 0.1 TH/MM3 Basophils # (Auto) 0.0 TH/MM3 CBC Comment DIFF FINAL Differential Comment Blood Urea Nitrogen 10 MG/DL Creatinine 0.65 MG/DL Random Glucose 105 MG/DL Total Protein 6.9 GM/DL Albumin 3.2 GM/DL Calcium Level 8.0 MG/DL Alkaline Phosphatase 69 U/L Aspartate Amino Transf (AST/SGOT) 21 U/L Alanine Aminotransferase (ALT/SGPT) 39 U/L Total Bilirubin 0.2 MG/DL Sodium Level 140 MEQ/L Potassium Level 3.7 MEQ/L Chloride Level 107 MEQ/L Carbon Dioxide Level 25.0 MEQ/L Anion Gap 8 MEQ/L Estimat Glomerular Filtration Rate 112 ML/MIN Salicylates Level LESS THAN 1.7 MG/DL Acetaminophen Level 4.7 MCG/ML Ethyl Alcohol Level LESS THAN 3 MG/DL Urine Opiates Screen NEG Urine Barbiturates Screen NEG Urine Amphetamines Screen POS Urine Benzodiazepines Screen NEG Urine Cocaine Screen NEG Urine Cannabinoids Screen POS MDM Medical Decision Making Medical Screen Exam Complete: Yes Emergency Medical Condition: Yes Medical Record Reviewed: Yes Interpretation(s) ECG shows NSR, normal intervals Differential Diagnosis ingestion vs psychosis vs intoxication Narrative Course Patient is a 22 year old female who comes in after she says she took 60 400mg Seroquel. Exam shows no acute abnormalities. IV established, labs sent. Labs show no acute abnormalities. Poison control contacted, suggests observation for 12 hrs and repeat ECG ever 2 hrs. She was given activated charcoal on arrival. Given IVF. She never had any evidence of hypoxia or decreased respiratory drive. Placed in observation for further management. Diagnosis Primary Impression: Drug ingestion Qualified Codes: T50.904A - Poisoning by unspecified drugs, medicaments and biological substances, undetermined, initial encounter Admitting Information Admitting Physician Requests: Observation Viktoriya Hoffman MD Mar 12, 2017 16:49
--- NOTE | 2017-03-12 17:25 | HHI.HP ---
HPI Service Family Medicine Primary Care Physician No Primary Care Physician Admission Diagnosis Drug overdose Diagnoses: International Travel<30 Days: No Contact w/Intl Traveler<30days: No Known Affected Area: No History of Present Illness 22 yr old w/ PMHx of HepC and IV drug user, brought in by police department due to drug overdose. She was arrested in a parking lot. She states that she took 1 bottle of Seroquel that she got from her mom. Per ED note, she took 60 pills of 400mg of Seroquel in an attempt to kill herself due to her living situation. She states that she is very sad and depressed. She denies CP, SOB, abdominal pain, and N/V. She reports using meth and MJ yesterday. (Shana Anne MD R1) Review of Systems ROS Limitations: Intoxication, Poor Historian (Shana Anne MD R1) Past Family Social History Past Medical History Bipolar Asthma Hep. C Past Surgical History None (Shana Anne MD R1) Allergies: Coded Allergies: No Known Allergies (Verified Allergy, Unknown, 03/12/17) Family History Mom- Bipolar and Schizophrenia Social History Lives with aunt, unemployed 6pack year smoking hx Drinks occasionally Meth and MJ use (Shana Anne MD R1) Physical Exam Vital Signs Vital Signs Date Time Temp Pulse Resp B/P (MAP) Pulse Ox O2 Delivery O2 Flow Rate FiO2 03/12/17 15:35 85 18 114/65 (81) 100 Room Air 03/12/17 14:06 102 20 125/85 (98) 100 Room Air 03/12/17 13:34 93 100 Room Air 03/12/17 13:21 98.4 103 20 144/52 (82) 95 Physical Exam GENERAL: somnolent, curled up in bed, emotional, crying, in NAD SKIN: No rashes, ecchymoses or lesions. Cool and dry. HEAD: Atraumatic. Normocephalic. No temporal or scalp tenderness. EYES: Pupils enlarged, reactive to light, EOMI ENT: Nose without bleeding, purulent drainage or septal hematoma. Throat without erythema, tonsillar hypertrophy or exudate. Uvula midline. Airway patent. NECK: Trachea midline. No JVD or lymphadenopathy. Supple, nontender, no meningeal signs. CARDIOVASCULAR: Regular rate and rhythm without murmurs, gallops, or rubs. RESPIRATORY: Clear to auscultation. Breath sounds equal bilaterally. No wheezes , rales, or rhonchi. GASTROINTESTINAL: Abdomen soft, non-tender, nondistended. No hepato-splenomegaly , or palpable masses. No guarding. MUSCULOSKELETAL: Extremities without clubbing, cyanosis, or edema. No joint tenderness, effusion, or edema noted. No calf tenderness. Negative Homans sign bilaterally. NEUROLOGICAL: Awake and alert. Cranial nerves II through XII intact. Motor and sensory grossly within normal limits. Five out of 5 muscle strength in all muscle groups. Normal speech. Laboratory Laboratory Tests Test 03/12/17 13:40 03/12/17 15:50 White Blood Count 2.8 Red Blood Count 4.39 Hemoglobin 13.3 Hematocrit 39.3 Mean Corpuscular Volume 89.4 Mean Corpuscular Hemoglobin 30.3 Mean Corpuscular Hemoglobin Concent 33.8 Red Cell Distribution Width 13.8 Platelet Count 111 Mean Platelet Volume 9.2 Neutrophils (%) (Auto) 41.2 Lymphocytes (%) (Auto) 43.2 Monocytes (%) (Auto) 11.1 Eosinophils (%) (Auto) 4.0 Basophils (%) (Auto) 0.5 Neutrophils # (Auto) 1.2 Lymphocytes # (Auto) 1.2 Monocytes # (Auto) 0.3 Eosinophils # (Auto) 0.1 Basophils # (Auto) 0.0 CBC Comment DIFF FINAL Differential Comment Blood Urea Nitrogen 10 Creatinine 0.65 Random Glucose 105 Total Protein 6.9 Albumin 3.2 Calcium Level 8.0 Alkaline Phosphatase 69 Aspartate Amino Transf (AST/SGOT) 21 Alanine Aminotransferase (ALT/SGPT) 39 Total Bilirubin 0.2 Sodium Level 140 Potassium Level 3.7 Chloride Level 107 Carbon Dioxide Level 25.0 Anion Gap 8 Estimat Glomerular Filtration Rate 112 Salicylates Level LESS THAN 1.7 Acetaminophen Level 4.7 Ethyl Alcohol Level LESS THAN 3 Urine Opiates Screen NEG Urine Barbiturates Screen NEG Urine Amphetamines Screen POS Urine Benzodiazepines Screen NEG Urine Cocaine Screen NEG Urine Cannabinoids Screen POS (Shana Anne MD R1) Result Diagram: 03/12/17 1340 03/12/17 1340 Caprini VTE Risk Assessment Caprini VTE Risk Assessment: No/Low Risk (score <= 1) Caprini Risk Assessment Model Point Value = 1 Point Value = 2 Point Value = 3 Point Value = 5 Age 41-60 Minor surgery BMI > 25 kg/m2 Swollen legs Varicose veins or History of unexplained or recurrent spontaneous Oral contraceptives or hormone replacement Sepsis (< 1 month) Serious lung disease, including pneumonia (< 1 month) Abnormal pulmonary function Acute myocardial infarction Congestive heart failure (< 1 month) History of inflammatory bowel disease Medical patient at bed rest Age 61-74 Arthroscopic surgery Major open surgery (> 45 min) Laparoscopic surgery (> 45 min) Malignancy Confined to bed (> 72 hours) Immobilizing plaster cast Central venous access Age >= 75 History of VTE Family history of VTE Factor V Leiden Prothrombin [id number] Lupus anticoagulant Anticardiolipin antibodies Elevated serum homocysteine Heparin-induced thrombocytopenia Other congenital or acquired thrombophilia Stroke (< 1 month) Elective arthroplasty Hip, pelvis, or leg fracture Acute spinal cord injury (< 1 month) Prophylaxis Regimen Total Risk Factor Score Risk Level Prophylaxis Regimen 0-1 Low Early ambulation 2 Moderate Order ONE of the following: *Sequential Compression Device (SCD) *Heparin 5000 units SQ BID 3-4 Higher Order ONE of the following medications: *Heparin 5000 units SQ TID *Enoxaparin/Lovenox 40 mg SQ daily (WT < 150 kg, CrCl > 30 mL/min) *Enoxaparin/Lovenox 30 mg SQ daily (WT < 150 kg, CrCl > 10-29 mL/min) *Enoxaparin/Lovenox 30 mg SQ BID (WT < 150 kg, CrCl > 30 mL/min) AND/OR *Sequential Compression Device (SCD) 5 or more Highest Order ONE of the following medications: *Heparin 5000 units SQ TID (Preferred with Epidurals) *Enoxaparin/Lovenox 40 mg SQ daily (WT < 150 kg, CrCl > 30 mL/min) *Enoxaparin/Lovenox 30 mg SQ daily (WT < 150 kg, CrCl > 10-29 mL/min) *Enoxaparin/Lovenox 30 mg SQ BID (WT < 150 kg, CrCl > 30 mL/min) AND *Sequential Compression Device (SCD) (Shana Anne MD R1) Assessment and Plan Assessment and Plan 22 yr old IV drug user with Hep C admitted for drug overdose. Code Status Full Code Discussed Condition With Dr. Colón (Shana Anne MD R1) Attending Attestation THIS CASE WAS DISCUSSED WITH THE RESIDENT PHYSICIAN. I HAVE REVIEWED THE RECORD AND AGREE WITH THE ABOVE NOTE AND PLAN OF CARE WAS DISCUSSED. I HAVE AUTHORIZED THE ORDER FOR PLACEMENT IN OUT-PATIENT OBSERVATION STATUS. (Rene Hernandez MD) Problem List: (1) Drug overdose ICD Codes: T50.901A - Poisoning by unspecified drugs, medicaments and biological substances, accidental (unintentional), initial encounter Plan: Ingestion of 60 pills of 400mg of Seroquel, monitor for QT prolongation Poison control contacted, recommended observation for 12 hrs and repeat EKG q2h Initial EKG shows NSR, normal intervals UDS positive for amphetamines and cannabinoids Acetaminophen and Salicylates levels low test negative Respiratory status stable (2) Asthma ICD Codes: J45.909 - Unspecified asthma, uncomplicated Plan: Stable DuoNebs PRN (3) Hepatitis C ICD Codes: B19.20 - Unspecified viral hepatitis C without hepatic coma Plan: Patient reports never being treated for Hep. C LFTs wnl on CMP HIV and Hepatitis panel pending (4) Nutrition, metabolism, and development symptoms ICD Codes: R63.8 - Other symptoms and signs concerning food and fluid intake Plan: Diet: Regular Fluids: NS 100mls/hr Electrolytes: Monitor and replace as needed Vitals q4h, monitor I & Os DVT ppx: lovenox Case Management consult (Shana Anne MD R1) Shana Anne MD R1 Mar 12, 2017 17:25 Rene Hernandez MD Mar 13, 2017 11:54
[2017-03-12] MEDS ORDERED: NALOXONE HCL 0.4 MG/ML AMP IV PUSH PRN (17:30)
[2017-03-12] MEDS ORDERED: RESP: ALBUTEROL 2.5 MG/IPRATROPIUM 0.5 MG NEB (PRN) NEB (17:30)
[2017-03-12] MEDS ORDERED: SODIUM CHLORIDE 0.9% FLUSH 10 ML FLUSH IV FLUSH PRN (17:30)
[2017-03-12] MEDS: SODIUM CHLOR 0.9% 1000 ML INJ 1,000 ML IV SCH (17:59)
[2017-03-12] MEDS ORDERED: ENOXAPARIN SODIUM 40 MG/0.4 ML SYRINGE SQ SCH (18:00)
[2017-03-12 20:26] VITALS: BP 101/63; PULSE 75; RESP 18; TEMP 96.1; O2SAT 100
[2017-03-12 20:45] VITALS: PULSE 63
[2017-03-12] MEDS: SODIUM CHLORIDE 0.9% FLUSH 10 ML FLUSH IV FLUSH SCH (21:21)
[2017-03-13] VITALS (8 sets, daily range): BP systolic 114–121; BP diastolic 70–77; PULSE 57–110; RESP 16–18; TEMP 96.2–98.1; O2SAT 97–99
[2017-03-13] MEDS: SODIUM CHLOR 0.9% 1000 ML INJ 1,000 ML IV SCH (04:41)
[2017-03-13 06:00] LABS: AUTOMATED NEUTROPHIL # 0.7 TH/MM3 (1.8-7.7); BASOPHIL % 0.4 % (0.0-2.0); EOSINOPHIL # 0.2 TH/MM3 (0-0.4); EOSINOPHIL % 5.8 % (0.0-4.0); HEMATOCRIT 36.4 % (35.0-46.0); HEMOGLOBIN 12.4 GM/DL (11.6-15.3); LYMPH % 59.3 % (9.0-44.0); MEAN CORPUSCULAR HEMOGLOBIN 30.6 PG (27.0-34.0); MEAN PLATELET VOLUME 9.2 FL (7.0-11.0); MONO % 12.5 % (0.0-8.0); MONOCYTE # 0.4 TH/MM3 (0-0.9); PLATELET COUNT 95 TH/MM3 (150-450); RED BLOOD COUNT 4.05 MIL/MM3 (4.00-5.30); RED CELL DISTRIBUTION WIDTH 13.4 % (11.6-17.2); WHITE BLOOD COUNT 3.3 TH/MM3 (4.0-11.0)
[2017-03-13 06:21] LABS: CALCIUM 7.5 MG/DL (8.5-10.1); CREATININE 0.56 MG/DL (0.50-1.00)
[2017-03-13 07:17] LABS: BANDS 2 % (0-6); BASOPHILS 1 % (0-2); LYMPHOCYTES 61 % (9-44); MONOCYTES 4 % (0-8); NEUTROPHIL # MANUAL DIFF 1.1 TH/MM3 (1.8-7.7); POLYS (SEG NEUTROPHILS) 30 % (16-70)
[2017-03-13] MEDS: SODIUM CHLORIDE 0.9% FLUSH 10 ML FLUSH IV FLUSH SCH (09:00)
[2017-03-13 09:14] LABS: HEPATITIS A AB IGM NEGATIVE (NEGATIVE); HEPATITIS B CORE AB IGM NEGATIVE (NEGATIVE); HEPATITIS B SURFACE ANTIGEN NEGATIVE (NEGATIVE); HEPATITIS C AB IgG REACTIVE (NEGATIVE)
--- NOTE | 2017-03-13 11:51 | HHI.HP ---
[facility] Service Family Medicine Primary Care Physician No Primary Care Physician Admission Diagnosis Drug overdose Diagnoses: (1) Drug overdose (2) Asthma (3) Hepatitis C (4) Nutrition, metabolism, and development symptoms International Travel<30 Days: No Contact w/Intl Traveler<30days: No Known Affected Area: No History of Present Illness No acute events overnight patient states that she feels relatively well this morning. She does report feeling somewhat nauseated this morning but denies emesis. She denies any symptoms such as chest pain, denies palpitations, denies shortness of breath or cough. In summary, this is a 22-year-old female with a previous history of IV drug abuse and hepatitis C who is brought in by the Police Department due to drug overdose suspected to be Seroquel. She was arrested while in a parking lot where the patient states that she took 1 full bottle of Seroquel that she had gotten from her mom. She states that the bottle was full and that she took them all, which would be approximately 60 pills. She states that she is very sad and depressed and that she took these pills purposefully to hurt herself. Past Family Social History Past Medical History Bipolar Asthma Hep. C Past Surgical History None Allergies: Coded Allergies: No Known Allergies (Verified Allergy, Unknown, 03/12/17) Family History Mom- Bipolar and Schizophrenia Social History Lives with aunt, unemployed 6pack year smoking hx Drinks occasionally Meth and MJ use Physical Exam Vital Signs Vital Signs Date Time Temp Pulse Resp B/P (MAP) Pulse Ox O2 Delivery O2 Flow Rate FiO2 03/13/17 11:26 98.1 78 16 121/70 (87) 99 03/13/17 07:32 97.8 60 16 114/76 (89) 98 03/13/17 04:52 96.2 71 18 120/75 (90) 97 03/13/17 04:00 66 03/13/17 00:45 96.7 81 18 120/77 (91) 98 03/13/17 00:00 110 03/12/17 20:45 63 03/12/17 20:26 96.1 75 18 101/63 (76) 100 03/12/17 15:35 85 18 114/65 (81) 100 Room Air 03/12/17 14:06 102 20 125/85 (98) 100 Room Air 03/12/17 13:34 93 100 Room Air 1/29/18 13:21 98.4 103 20 144/52 (82) 95 Physical Exam GENERAL: Tired but easily arousable female lying in bed in no obvious distress SKIN: No rashes, ecchymoses or lesions. Cool and dry. HEAD: Atraumatic. Normocephalic. No temporal or scalp tenderness. EYES: Pupils equal, round, reactive to light CARDIOVASCULAR: Regular rate and rhythm without murmurs, gallops, or rubs. RESPIRATORY: Clear to auscultation. Breath sounds equal bilaterally. No wheezes , rales, or rhonchi. GASTROINTESTINAL: Abdomen soft, non-tender, nondistended. MUSCULOSKELETAL: Extremities without clubbing, cyanosis, or edema. NEUROLOGICAL: Awake and alert. Cranial nerves II through XII intact. Motor and sensory grossly within normal limits. Five out of 5 muscle strength in all muscle groups. Normal speech. Laboratory Laboratory Tests Test 03/12/17 13:40 03/12/17 15:50 03/13/17 05:09 White Blood Count 2.8 3.3 Red Blood Count 4.39 4.05 Hemoglobin 13.3 12.4 Hematocrit 39.3 36.4 Mean Corpuscular Volume 89.4 90.0 Mean Corpuscular Hemoglobin 30.3 30.6 Mean Corpuscular Hemoglobin Concent 33.8 34.0 Red Cell Distribution Width 13.8 13.4 Platelet Count 111 95 Mean Platelet Volume 9.2 9.2 Neutrophils (%) (Auto) 41.2 22.0 Lymphocytes (%) (Auto) 43.2 59.3 Monocytes (%) (Auto) 11.1 12.5 Eosinophils (%) (Auto) 4.0 5.8 Basophils (%) (Auto) 0.5 0.4 Neutrophils # (Auto) 1.2 0.7 Lymphocytes # (Auto) 1.2 2.0 Monocytes # (Auto) 0.3 0.4 Eosinophils # (Auto) 0.1 0.2 Basophils # (Auto) 0.0 0.0 CBC Comment DIFF FINAL AUTO DIFF Differential Comment FINAL DIFF MANUAL Blood Urea Nitrogen 10 6 Creatinine 0.65 0.56 Random Glucose 105 79 Total Protein 6.9 Albumin 3.2 Calcium Level 8.0 7.5 Alkaline Phosphatase 69 Aspartate Amino Transf (AST/SGOT) 21 Alanine Aminotransferase (ALT/SGPT) 39 Total Bilirubin 0.2 Sodium Level 140 142 Potassium Level 3.7 4.0 Chloride Level 107 110 Carbon Dioxide Level 25.0 26.0 Anion Gap 8 6 Estimat Glomerular Filtration Rate 112 133 Salicylates Level LESS THAN 1.7 Acetaminophen Level 4.7 2.1 Ethyl Alcohol Level LESS THAN 3 Urine Opiates Screen NEG Urine Barbiturates Screen NEG Urine Amphetamines Screen POS Urine Benzodiazepines Screen NEG Urine Cocaine Screen NEG Urine Cannabinoids Screen POS Differential Total Cells Counted 100 Neutrophils % (Manual) 30 Band Neutrophils % 2 Lymphocytes % 61 Monocytes % 4 Eosinophils % 2 Basophils % 1 Neutrophils # (Manual) 1.1 Atypical Lymphocytes Platelet Estimate LOW Platelet Morphology Comment NORMAL Hepatitis A IgM Antibody NEGATIVE Hepatitis B Surface Antigen NEGATIVE Hepatitis B Core IgM Antibody NEGATIVE Hepatitis C Antibody REACTIVE HIV (1&2) Antibody NEGATIVE Result Diagram: 03/13/179 03/13/17 050 Caprini VTE Risk Assessment Caprini VTE Risk Assessment: No/Low Risk (score <= 1) Caprini Risk Assessment Model Point Value = 1 Point Value = 2 Point Value = 3 Point Value = 5 Age 41-60 Minor surgery BMI > 25 kg/m2 Swollen legs Varicose veins or History of unexplained or recurrent spontaneous Oral contraceptives or hormone replacement Sepsis (< 1 month) Serious lung disease, including pneumonia (< 1 month) Abnormal pulmonary function Acute myocardial infarction Congestive heart failure (< 1 month) History of inflammatory bowel disease Medical patient at bed rest Age 61-74 Arthroscopic surgery Major open surgery (> 45 min) Laparoscopic surgery (> 45 min) Malignancy Confined to bed (> 72 hours) Immobilizing plaster cast Central venous access Age >= 75 History of VTE Family history of VTE Factor V Leiden Prothrombin [id number] Lupus anticoagulant Anticardiolipin antibodies Elevated serum homocysteine Heparin-induced thrombocytopenia Other congenital or acquired thrombophilia Stroke (< 1 month) Elective arthroplasty Hip, pelvis, or leg fracture Acute spinal cord injury (< 1 month) Prophylaxis Regimen Total Risk Factor Score Risk Level Prophylaxis Regimen 0-1 Low Early ambulation 2 Moderate Order ONE of the following: *Sequential Compression Device (SCD) *Heparin 5000 units SQ BID 3-4 Higher Order ONE of the following medications: *Heparin 5000 units SQ TID *Enoxaparin/Lovenox 40 mg SQ daily (WT < 150 kg, CrCl > 30 mL/min) *Enoxaparin/Lovenox 30 mg SQ daily (WT < 150 kg, CrCl > 10-29 mL/min) *Enoxaparin/Lovenox 30 mg SQ BID (WT < 150 kg, CrCl > 30 mL/min) AND/OR *Sequential Compression Device (SCD) 5 or more Highest Order ONE of the following medications: *Heparin 5000 units SQ TID (Preferred with Epidurals) *Enoxaparin/Lovenox 40 mg SQ daily (WT < 150 kg, CrCl > 30 mL/min) *Enoxaparin/Lovenox 30 mg SQ daily (WT < 150 kg, CrCl > 10-29 mL/min) *Enoxaparin/Lovenox 30 mg SQ BID (WT < 150 kg, CrCl > 30 mL/min) AND *Sequential Compression Device (SCD) Assessment and Plan Assessment and Plan 22 yr old IV drug user with Hep C admitted for drug overdose. Problem List: (1) Drug overdose ICD Codes: T50.901A - Poisoning by unspecified drugs, medicaments and biological substances, accidental (unintentional), initial encounter Plan: Purposeful ingestion of approximately 60 pills of GetThis Poison control was contacted overnight who recommend 12 hour monitoring for QT prolongation with serial EKGs -EKGs have remained consistently stable with no evidence of QT prolongation We will consult psychiatry for suicidal ideations and attempt as patient is now medically cleared for discharge -There is a [place] [employer] police officer at her daughter who states that she will be discharged to half-way upon leaving the hospital once cleared by psychiatry UDS positive for amphetamines and cannabinoids Acetaminophen and Salicylates levels low test negative Respiratory status stable (2) Asthma ICD Codes: J45.909 - Unspecified asthma, uncomplicated Plan: Stable DuoNebs PRN (3) Hepatitis C ICD Codes: B19.20 - Unspecified viral hepatitis C without hepatic coma Plan: Patient reports never being treated for Hep. C LFTs wnl on CMP HIV and Hepatitis panel pending (4) Nutrition, metabolism, and development symptoms ICD Codes: R63.8 - Other symptoms and signs concerning food and fluid intake Plan: Diet: Regular Fluids: NS 100mls/hr Electrolytes: Monitor and replace as needed Vitals q4h, monitor I & Os DVT ppx: lovenox Case Management consult Rene Hernandez MD Mar 13, 2017 11:51
--- NOTE | 2017-03-13 12:41 | PD.PSY.CON ---
Provisional Diagnosis Admission Date Mar 12, 2017 at 17:19 Brew[place] I. Substance induced mood disorder, amphetamines and cannabis use disorder, history of bipolar disorder Brewster II. Deferred Brewster III. Hepatitis C, asthma Brewster IV. Under arrest Brewster V. 53 History of Present Illness Service Psychiatry Consult Requested By ER services Reason for Consult Overdose Primary Care Physician No Primary Care Physician HPI The patient is a 22-year-old woman, domiciled with her boyfriend, unemployed, with self-reported psychiatric history of bipolar disorder, well- documented history of polysubstance dependence including amphetamines, cannabis , cocaine, multiple ER visits in the context of substance issues, medical history of history of IV drug abuse and hepatitis C who is brought in by the Police Department due to drug overdose suspected to be Seroquel. She was arrested while in a parking lot where the patient states that she took 1 full bottle of Seroquel that she had gotten from her mom. She states that the bottle was full and that she took them all, which would be approximately 60 pills. Patient was consulted to psychiatry to address overdose. Collateral from Faiza Ann, her mother [phone] was obtained. On psychiatric evaluation the patient is tearful, irritable, but cooperative. She says that after an argument with her boyfriend she overdosed with intentions to "forgets and disconnect myself, but not to ". She reports that she overdosed in some Seroquel from her mother. Patient denies the charges that the police are making to her. I asked her again with how many pills she overdosed , and she says "with a lot, I don't know". Patient reports daily use of amphetamines, cannabis and sometimes cocaine. She denies alcohol. At this moment she denies suicidal and homicidal ideation, she denies visual and auditory hallucinations. The custody police the 80s with the patient is states that the patient was arrested due to burglary and she "allegedly overdose"after she was arrested. I spoke with her mother who told me that she saw the patient 2 days ago and the patient was at baseline. She says that she doesn't have a good contact with the patient because every time that the patient comes home she steals medications from her. She confirms that she takes Seroquel and Ativan, but she doesn't have any recollection of the patient taking Seroquel from her recently. Review of Systems Constitutional: DENIES: Diaphoretic episodes, Fatigue, Fever, Weight gain, Weight loss, Chills, Dizziness, Change in appetite, Night Sweats Endocrine: DENIES: Abnorml menstrual pattern, Heat/cold intolerance, Polydipsia , Polyuria, Polyphagia Eyes: DENIES: Blurred vision, Diplopia, Eye inflammation, Eye pain, Vision loss , Photosensitivity, Double Vision Ears, nose, mouth, throat: DENIES: Tinnitus, Hearing loss, Vertigo, Nasal discharge, Oral lesions, Throat pain, Hoarseness, Ear Pain, Running Nose, Epistaxis, Sinus Pain, Toothache, Odynophagia Respiratory: DENIES: Apneas, Cough, Snoring, Wheezing, Hemoptysis, Sputum production, Shortness of breath Cardiovascular: DENIES: Chest pain, Palpitations, Syncope, Dyspnea on Exertion , PND, Lower Extremity Edema, Orthopnea, Claudication Gastrointestinal: DENIES: Abdominal pain, Black stools, Bloody stools, Constipation, Diarrhea, Nausea, Vomiting, Difficulty Swallowing, Anorexia Genitourinary: DENIES: Abnormal vaginal bleeding, Dysmenorrhea, Dyspareunia, Sexual dysfunction, Urinary frequency, Urinary incontinence, Urgency, Hematuria , Dysuria, Nocturia, Vaginal discharge Musculoskeletal: DENIES: Joint pain, Muscle aches, Stiffness, Joint Swelling, Back pain, Neck pain Integumentary: DENIES: Abnormal pigmentation, Pruritus, Rash, Nail changes, Breast masses, Breast skin changes, Nipple discharge Hematologic/lymphatic: DENIES: Bruising, Lymphadenopathy Immunologic/allergic: DENIES: Eczema, Urticaria Neurologic: DENIES: Abnormal gait, Headache, Localized weakness, Paresthesias, Seizures, Speech Problems, Tremor, Poor Balance Psychiatric: DENIES: Anxiety, Confusion, Mood changes, Depression, Hallucinations, Agitation, Suicidal Ideation, Homicidal Ideation, Delusions Past Family Social History Coded Allergies: No Known Allergies (Verified Allergy, Unknown, 03/12/17) Active Scripts Azithromycin Powder Packet (Zithromax Powder Packet) 1 Gm Powderpack, 1 GM PO ONCE for Infection, #1 PKT 0 Refills Mix with water according to packet instructions before use. Prov:Paula Reddy CNM [employer] 12/15/16 Hydroxyzine Pamoate (Hydroxyzine Pamoate) 50 Mg Cap, 50 MG PO QID Y for ITCHING for 7 Days, #30 CAP 0 Refills Prov:Doyle Ray II, MD 11/16/16 Methylprednisolone Dosepak (Medrol Dosepak) 4 Mg Dspk, 4 MG PO DIRECTED, #1 DSPK 0 Refills Per Pharmacist direction Prov:Steph Viera 11/16/16 Albuterol 6.7 GM Inh (Proventil Hfa 6.7 GM Inh) 90 Mcg/Act Aer, 2 PUFF INH Q4HR Y for SHORTNESS OF BREATH, #1 INHALER 6 Refills Prov:Steph Viera 10/26/16 Without A W/Fe Fum-Fe (Provida Dha 16-16-1.25-110 mg) 1 Cap Cap, 1 TAB PO DAILY, #30 BOTTLE 11 Refills Prov:Steph Viera 10/26/16 Current Medications Medications (Trade) Dose Ordered Sig/Antonio Route Start Time Stop Time Status Last Admin Sodium Chloride 1,000 ml @ 100 mls/hr Q10H IV 03/12/17 17:25 03/13/17 04:41 (NS Flush) 2 ml UNSCH PRN IV FLUSH 03/12/17 17:30 (NS Flush) 2 ml BID IV FLUSH 03/12/17 21:00 (Lovenox Inj) 40 mg Q24H SQ 03/12/17 18:00 (Narcan Inj) 0.4 mg UNSCH PRN IV PUSH 03/12/17 17:30 (Duoneb Neb) 1 ampule Q6HR NEB PRN NEB 03/12/17 17:30 Family Psych History The mother has bipolar and schizophrenia Social History She lives in [place] with her boyfriend, she has 3 kids, but they are living with family members and adoptive parents, she is unemployed, her highest level of education is high school Patient's Strengths (min. 2) Verbal Physical Exam Patient doesn't have any evidence of withdrawal, psychomotor retardation or agitation, tremors, stiffness Vital Signs Vital Signs Date Time Temp Pulse Resp B/P (MAP) Pulse Ox O2 Delivery O2 Flow Rate FiO2 03/13/17 11:26 98.1 78 16 121/70 (87) 99 03/12/17 15:35 Room Air I/O 03/13/17 03/13/17 03/14/17 08:00 16:00 00:00 Output Total 1000 ml Balance -1000 ml Lab Results Test 03/12/17 13:40 03/12/17 15:50 03/13/17 05:09 White Blood Count 2.8 TH/MM3 3.3 TH/MM3 Red Blood Count 4.39 MIL/MM3 4.05 MIL/MM3 Hemoglobin 13.3 GM/DL 12.4 GM/DL Hematocrit 39.3 % 36.4 % Mean Corpuscular Volume 89.4 FL 90.0 FL Mean Corpuscular Hemoglobin 30.3 PG 30.6 PG Mean Corpuscular Hemoglobin Concent 33.8 % 34.0 % Red Cell Distribution Width 13.8 % 13.4 % Platelet Count 111 TH/MM3 95 TH/MM3 Mean Platelet Volume 9.2 FL 9.2 FL Neutrophils (%) (Auto) 41.2 % 22.0 % Lymphocytes (%) (Auto) 43.2 % 59.3 % Monocytes (%) (Auto) 11.1 % 12.5 % Eosinophils (%) (Auto) 4.0 % 5.8 % Basophils (%) (Auto) 0.5 % 0.4 % Neutrophils # (Auto) 1.2 TH/MM3 0.7 TH/MM3 Lymphocytes # (Auto) 1.2 TH/MM3 2.0 TH/MM3 Monocytes # (Auto) 0.3 TH/MM3 0.4 TH/MM3 Eosinophils # (Auto) 0.1 TH/MM3 0.2 TH/MM3 Basophils # (Auto) 0.0 TH/MM3 0.0 TH/MM3 CBC Comment DIFF FINAL AUTO DIFF Differential Comment FINAL DIFF MANUAL Blood Urea Nitrogen 10 MG/DL 6 MG/DL Creatinine 0.65 MG/DL 0.56 MG/DL Random Glucose 105 MG/DL 79 MG/DL Total Protein 6.9 GM/DL Albumin 3.2 GM/DL Calcium Level 8.0 MG/DL 7.5 MG/DL Alkaline Phosphatase 69 U/L Aspartate Amino Transf (AST/SGOT) 21 U/L Alanine Aminotransferase (ALT/SGPT) 39 U/L Total Bilirubin 0.2 MG/DL Sodium Level 140 MEQ/L 142 MEQ/L Potassium Level 3.7 MEQ/L 4.0 MEQ/L Chloride Level 107 MEQ/L 110 MEQ/L Carbon Dioxide Level 25.0 MEQ/L 26.0 MEQ/L Anion Gap 8 MEQ/L 6 MEQ/L Estimat Glomerular Filtration Rate 112 ML/MIN 133 ML/MIN Salicylates Level LESS THAN 1.7 MG/DL Acetaminophen Level 4.7 MCG/ML 2.1 MCG/ML Ethyl Alcohol Level LESS THAN 3 MG/DL Urine Opiates Screen NEG Urine Barbiturates Screen NEG Urine Amphetamines Screen POS Urine Benzodiazepines Screen NEG Urine Cocaine Screen NEG Urine Cannabinoids Screen POS Differential Total Cells Counted 100 Neutrophils % (Manual) 30 % Band Neutrophils % 2 % Lymphocytes % 61 % Monocytes % 4 % Eosinophils % 2 % Basophils % 1 % Neutrophils # (Manual) 1.1 TH/MM3 Atypical Lymphocytes % Platelet Estimate LOW Platelet Morphology Comment NORMAL Hepatitis A IgM Antibody NEGATIVE Hepatitis B Surface Antigen NEGATIVE Hepatitis B Core IgM Antibody NEGATIVE Hepatitis C Antibody REACTIVE HIV (1&2) Antibody NEGATIVE Mental Status Examination Appearance: Appropriate Consciousness: Alert Orientation: x4 Motor Activity: Normal gait Speech: Unremarkable Language: Adequate Fund of Knowledge: Adequate Attention and Concentration: Adequate Memory: Unremarkable Mood: Angry Affect: Irritable Thought Process & Associations: Intact Thought Content: Appropriate Hallucination Type: None Delusion Type: None Suicidal Ideation: No Suicidal Plan: No Suicidal Intention: No Homicidal Ideation: No Homicidal Plan: No Homicidal Intention: No Insight: Fair Judgment: Impulsive Assessment & Plan Problem List: (1) Substance induced mood disorder ICD Codes: F19.94 - Other psychoactive substance use, unspecified with psychoactive substance-induced mood disorder Assessment & Plan Estimated LOS: Gregory Fernando MD Mar 13, 2017 12:41
--- NOTE | 2017-03-13 14:18 | HHI.DCPOC ---
Discharge Care Plan Diagnosis: (1) Drug overdose (2) Hepatitis C Goals to Promote Your Health * To prevent worsening of your condition and complications * To maintain your health at the optimal level Directions to Meet Your Goals Take your medications as prescribed Follow your dietary instruction Follow activity as directed Keep your appointments as scheduled Take your immunizations and boosters as scheduled If your symptoms worsen call your PCP, if no PCP go to Urgent Care Center or Emergency Room Smoking is Dangerous to Your Health. Avoid second hand smoke Call the 24-hour hour crisis hotline for domestic abuse at Shana Anne MD R1 Mar 13, 2017 14:18
--- NOTE | 2017-03-13 17:14 | EKG ---
Date Performed: 03/12/2017 Time Performed: 15:33:27 PTAGE: 22 years EKG: Sinus rhythm WITH FREQUENT VENTRICULAR PREMATURE COMPLEXES ABNORMAL ECG NO PREVIOUS TRACING DOCTOR: Mukesh Nesbitt Interpretating Date/Time 03/13/2017 17:13:12
--- NOTE | 2017-03-14 00:32 | EKG ---
Date Performed: 03/13/2017 Time Performed: 04:58:16 PTAGE: 22 years EKG: Sinus rhythm WITH OCCASIONAL VENTRICULAR PREMATURE COMPLEXES BORDERLINE ECG PREVIOUS TRACING : 03/13/2017 02.26 Since the prior tracing, there has been no significant xiao DOCTOR: Didier Aguilera Interpretating Date/Time 03/14/2017 00:31:08
--- NOTE | 2017-03-14 00:36 | EKG ---
Date Performed: 03/13/2017 Time Performed: 02:26:41 PTAGE: 22 years EKG: Sinus rhythm NORMAL ECG PREVIOUS TRACING : 03/13/2017 00.52 Since the prior tracing, there has been no significant xiao DOCTOR: Didier Aguilera Interpretating Date/Time 03/14/2017 00:35:41
--- NOTE | 2017-03-14 00:38 | EKG ---
Date Performed: 03/13/2017 Time Performed: 00:52:08 PTAGE: 22 years EKG: Sinus rhythm POOR R WAVE PROGRESSION PREVIOUS TRACING : 03/12/2017 22.35 Since the prior tracing, there has been no significan t change DOCTOR: Didier Aguilera Interpretating Date/Time 03/14/2017 00:37:34
--- NOTE | 2017-03-14 00:41 | EKG ---
Date Performed: 03/12/2017 Time Performed: 22:35:49 PTAGE: 22 years EKG: Sinus rhythm POOR R WAVE PROGRESSION PREVIOUS TRACING : 03/12/2017 20.36 Since the prior tracing, there has been no significan t change DOCTOR: Didier Aguilera Interpretating Date/Time 03/14/2017 00:40:16
--- NOTE | 2017-03-14 00:46 | EKG ---
Date Performed: 03/12/2017 Time Performed: 20:36:41 PTAGE: 22 years EKG: Sinus rhythm ANTEROSEPTAL MYOCARDIAL INFARCTION ABNORMAL ECG PREVIOUS TRACING : 03/12/2017 15.33 Compared to prior tracing, PVCs no longer noted DOCTOR: Didier Aguilera Interpretating Date/Time 03/14/2017 00:44:43
--- NOTE | 2017-03-14 01:16 | EKG ---
Date Performed: 03/12/2017 Time Performed: 13:30:11 PTAGE: 22 years EKG: Sinus rhythm NORMAL ECG Since the prior tracing, there has been no significant change DOCTOR: Didier Aguilera Interpretating Date/Time 03/14/2017 01:14:36
== END 2017-03-13 15:08 | disposition home or self-care (01) ==
LOC: NEPC 13:14 → NEDA 17:19 → NEPHCDU 18:20
PROVIDERS: ADMIT Family Medicine; ATTEND Family Medicine
DX: T50.902A Poisoning by unspecified drugs, medicaments and biological substances, intentional self-harm, initial encounter (principal); J45.909 Unspecified asthma, uncomplicated; F17.210 Nicotine dependence, cigarettes, uncomplicated; Z79.899 Other long term (current) drug therapy; F12.90 Cannabis use, unspecified, uncomplicated; F15.90 Other stimulant use, unspecified, uncomplicated; F31.9 Bipolar disorder, unspecified; B19.20 Unspecified viral hepatitis C without hepatic coma; R63.8 Other symptoms and signs concerning food and fluid intake; R45.851 Suicidal ideations; R94.31 Abnormal electrocardiogram [ECG] [EKG]
CPT/HCPCS: 80048; 80053; 80074; 80307; 84703; 85007; 85025; 85027; 86703; 93005; 96360; 96361; 99285; G0378; J7030

== ENCOUNTER 2017-05-01 00:37 | Emergency (ER) | payer SELFPAY ==
[~2017-05-01] VITALS: Ht 154.9 cm; Wt 55.0 kg
[~2017-05-01 00:37] MED LIST changes: -MEDR4PAK PO; -PREN1CAP30 PO; -ZITH1POW PO
[2017-05-01 01:03] VITALS: BP 120/83; PULSE 103; RESP 18; TEMP 98.3; O2SAT 100
== END 2017-05-01 03:30 | disposition left against medical advice (07) ==
LOC: NED 00:37
DX: Z03.89 Encounter for observation for other suspected diseases and conditions ruled out (principal)
CPT/HCPCS: 99281